=== PATIENT | female | born 1945 | race Caucasian/White ===

== ENCOUNTER 2017-11-28 03:40 | Inpatient (IN) | payer MEDICARE, MEDICAID ==
[2017-11-28] VITALS (9 sets, daily range): BP systolic 125–164; BP diastolic 54–98
[~2017-11-28] VITALS: Ht 162.6 cm; Wt 81.8 kg
[~2017-11-28 03:40] MED LIST: ALBU2.5V7 NEB; ARIP10TA15 PO; ATEN-169 PO; BENZ1TAB7 PO; DULO-31 PO; FURO-149 PO; KETO15CR2 TOP; KETO200S3 TOP; LACTC PO; LEVO112T61 PO; OLAN10TA19 PO; POTA-82 PO; ROSU10TA PO; TOP100T PO; TRAZ-146 PO
[2017-11-28] MEDS ORDERED: vancomycin inj 1,000 MG in normal saline 250ml IV soln 250 ML IV STA ×2 (04:35→05:05)
[2017-11-28 04:43] LABS: BASOPHILS % (AUTO) 0.3 % (0-1); EOSINOPHILS # (AUTO) 0.2 X10'3 (0-0.9); EOSINOPHILS % (AUTO) 1.2 % (0-6); HEMATOCRIT 30.5 % (35.0-45.0); LYMPHOCYTES # (AUTO) 1.6 X10'3 (1.1-4.8); MEAN CORPUSCULAR HEMOGLOBIN 24.3 PG (27.0-31.0); MEAN CORPUSCULAR HGB CONC 32.7 % (33.0-36.5); MEAN CORPUSCULAR VOLUME 74.3 FL (78-98); MEAN PLATELET VOLUME 7.8 FL (7.4-10.4); MONOCYTES # (AUTO) 0.6 X10'3 (0-0.9); MONOCYTES % (AUTO) 4.3 % (2-12); NEUTROPHILS # (AUTO) 10.8 X10'3 (1.8-7.7); NEUTROPHILS % (AUTO) 82.2 % (42-75); PLATELET COUNT 53 X10'3 (140-440); RED BLOOD COUNT 4.11 X10'6 (4.20-5.60); RED CELL DISTRIBUTION WIDTH 19.3 % (11.5-14.5); WHITE BLOOD COUNT 13.2 X10'3 (4.5-11.0)
[2017-11-28 04:57] LABS: ALANINE AMINOTRANSFERASE 28 U/L (12-78); ALBUMIN 3.3 G/DL (3.4-5.0); ALBUMIN/GLOBULIN RATIO 0.8 (1.1-1.5); ALKALINE PHOSPHATASE 113 IU/L (46-116); ANION GAP 11 (8-16); ASPARTATE AMINO TRANSFERASE 19 U/L (10-37); BILIRUBIN,TOTAL 0.3 MG/DL (0.1-1.0); BLOOD UREA NITROGEN 17 MG/DL (7-18); BUN/CREATININE RATIO 19.8 (6.6-38.0); CALCIUM 8.4 MG/DL (8.5-10.1); CHLORIDE 107 MMOL/L (99-107); CREATININE 0.86 MG/DL (0.40-0.90); GLUCOSE 143 MG/DL (70-104); SODIUM 142 MMOL/L (135-145); TOTAL CARBON DIOXIDE 23.9 MMOL/L (24-32); TOTAL PROTEIN 7.3 G/DL (6.4-8.2); eGFR 65 ML/MIN
[2017-11-28] MEDS ORDERED: levoFLOXACIN-Levaquin 750MG/D5 150 ML IV STA (05:05)
[2017-11-28 05:12] LABS: POTASSIUM 3.7 MMOL/L (3.5-5.1)
[2017-11-28] MEDS ORDERED: iohexol 300mg/ml 100ml inj. ONE (05:25)
[2017-11-28] MEDS ORDERED: normal saline 1000ml 1,000 ML IV ONE (05:40)
[2017-11-28] MEDS ORDERED: vancomycin/NS 1 GM ADD-VANTAGE 250 ML IV ONE (05:40)
[2017-11-28] MEDS ORDERED: albuterol 2.5 MG/3 ML nebule NEB ONE (05:55)
[2017-11-28] MEDS ORDERED: glucagon, human recombinant 1mg kit IV ONE (06:00)
[2017-11-28] MEDS ORDERED: LEVO175T2 PO (06:03)
[2017-11-28] MEDS ORDERED: BENZ1TAB7 PO (06:03)
[2017-11-28] MEDS ORDERED: SIME1PAC PO (06:03)
[2017-11-28] MEDS ORDERED: NA P133E4 RC (06:03)
[2017-11-28] MEDS ORDERED: ALBU8.5H8 IH (06:03)
[2017-11-28] MEDS ORDERED: DULO60CA45 PO (06:03)
[2017-11-28] MEDS ORDERED: BENZ1LOZ61 PO (06:03)
[2017-11-28] MEDS ORDERED: OXYC10TA57 PO (06:03)
[2017-11-28] MEDS ORDERED: HYDR-565 PO ×2 (06:03)
[2017-11-28] MEDS ORDERED: ARIP15TA3 PO (06:03)
[2017-11-28] MEDS ORDERED: DOCU100C41 PO (06:03)
[2017-11-28] MEDS ORDERED: MAGN400O6 PO (06:03)
[2017-11-28] MEDS ORDERED: DULR RC (06:03)
[2017-11-28] MEDS ORDERED: LORA0.5T PO (06:03)
[2017-11-28] MEDS ORDERED: TOPI200T PO (06:03)
[2017-11-28] MEDS ORDERED: TRAM50TA2 PO (06:03)
[2017-11-28] MEDS ORDERED: MELO-100 PO (06:03)
[2017-11-28] MEDS ORDERED: ACET-2119 PO (06:03)
[2017-11-28] MEDS ORDERED: acetaminophen 325mg tablet PO PRN (06:15)
[2017-11-28] MEDS ORDERED: magnesium hydroxide 30ml (MOM) UD suspension PO PRN ×2 (06:15→06:20)
[2017-11-28] MEDS ORDERED: ondansetron/PF 4mg/2ml inj IV PRN (06:15)
[2017-11-28] MEDS ORDERED: morphine 4 MG/ML inj SYRINge IV PRN ×2 (06:15)
[2017-11-28] MEDS ORDERED: mag hydrox/Alum hydrox/simeth 30ml oral suspension PO PRN (06:15)
[2017-11-28] MEDS ORDERED: LORazepam 0.5 MG tablet PO PRN (06:20)
[2017-11-28] MEDS ORDERED: SODIUM BICARBONATE PO PRN (06:20)
[2017-11-28] MEDS ORDERED: CITRIC ACID PO PRN (06:20)
[2017-11-28] MEDS ORDERED: SIMETHICONE PO PRN (06:20)
[2017-11-28] MEDS ORDERED: HYDROcodone/acetaminophen 5mg/325mg tablet PO PRN (06:25)
[2017-11-28] MEDS ORDERED: fentaNYL/PF 50MCG/1 ML 2ML syringe ONE (07:01)
[2017-11-28] MEDS ORDERED: MIDAZolam 5mg/5ml vial ONE (07:01)
[2017-11-28] MEDS ORDERED: LIDOcaine Viscous 15ml cup ONE (07:01)
[2017-11-28] MEDS ORDERED: naproxen 500mg tablet PO SCH (07:30)
[2017-11-28] MEDS ORDERED: piperacillin/tazo 3.375gm/50ml 50 ML IV SCH (08:00)
[2017-11-28] MEDS ORDERED: HYDROcodone/acetaminophen 10/325mg tab PO SCH (08:00)
[2017-11-28] MEDS: enoxaparin 40mg/0.4ml syringe SUBCUT SCH (09:27)
[2017-11-28] MEDS: topiramate 100mg tablet PO SCH (09:29)
[2017-11-28] MEDS: levoTHYROXINE 175mcg tablet PO SCH (09:30)
[2017-11-28] MEDS: docusate sod 100mg capsule PO SCH ×2 (09:30→19:58)
[2017-11-28] MEDS: benztropine 1mg tablet PO SCH ×2 (10:00→19:58)
[2017-11-28] MEDS: duloxetine 30mg CAPSULE.DR PO SCH (11:23)
[2017-11-28] MEDS: pantoprazole 40 MG vial IV SCH (12:14)
[2017-11-28] MEDS: piperacillin/tazo 4.5gm/100ml 100 ML IV SCH ×3 (12:14→23:52)
[2017-11-28] MEDS ORDERED: benzocaine/menthol oral lozeng 1 EACH BOX MM PRN (15:20)
[2017-11-28] MEDS: HYDROcodone/acetaminophen 10/325mg tab PO PRN (17:03)
[2017-11-28] MEDS: aripiprazole 5mg tablet PO SCH (21:10)
[2017-11-29 02:00] VITALS: BP 133/58
[2017-11-29] MEDS: HYDROcodone/acetaminophen 10/325mg tab PO PRN ×2 (03:19→20:12)
[2017-11-29 05:34] LABS: BASOPHILS % (AUTO) 0 % (0-1); EOSINOPHILS % (AUTO) 0 % (0-6); HEMATOCRIT 25.2 % (35.0-45.0); HEMOGLOBIN 8.4 g/dl (12.0-16.0); LYMPHOCYTES # (AUTO) 0.9 X10'3 (1.1-4.8); LYMPHOCYTES % (AUTO) 3.8 % (21-51); MEAN CORPUSCULAR HEMOGLOBIN 24.6 PG (27.0-31.0); MEAN CORPUSCULAR HGB CONC 33.5 % (33.0-36.5); MEAN CORPUSCULAR VOLUME 73.3 FL (78-98); MEAN PLATELET VOLUME 7.8 FL (7.4-10.4); MONOCYTES # (AUTO) 1.6 X10'3 (0-0.9); MONOCYTES % (AUTO) 6.4 % (2-12); NEUTROPHILS # (AUTO) 22.5 X10'3 (1.8-7.7); NEUTROPHILS % (AUTO) 89.8 % (42-75); PLATELET COUNT 218 X10'3 (140-440); RED BLOOD COUNT 3.43 X10'6 (4.20-5.60); RED CELL DISTRIBUTION WIDTH 19.3 % (11.5-14.5)
[2017-11-29 06:02] LABS: ALBUMIN 2.8 G/DL (3.4-5.0); ANION GAP 13 (8-16); BLOOD UREA NITROGEN 14 MG/DL (7-18); BUN/CREATININE RATIO 16.9 (6.6-38.0); CALCIUM 8.3 MG/DL (8.5-10.1); CHLORIDE 105 MMOL/L (99-107); CREATININE 0.83 MG/DL (0.40-0.90); GLUCOSE 132 MG/DL (70-104); SODIUM 140 MMOL/L (135-145); TOTAL CARBON DIOXIDE 22.2 MMOL/L (24-32); eGFR 68 ML/MIN
[2017-11-29 06:10] LABS: WHITE BLOOD COUNT 25.1 X10'3 (4.5-11.0)
[2017-11-29 06:11] LABS: TOTAL CELLS COUNTED 100
[2017-11-29 06:12] LABS: ANISOCYTOSIS 2+; PLATELET ESTIMATE NORMAL
[2017-11-29 06:22] VITALS: BP 112/49
[2017-11-29] MEDS ORDERED: potassium Cl 40MEQ/NS 500ml 500 ML IV PRN ×2 (06:40)
[2017-11-29] MEDS ORDERED: potassium Cl 20 mEq SR tablet PO PRN (06:40)
[2017-11-29] MEDS: K and/or MAG REPLACEMENT MC SCH (08:00)
[2017-11-29] MEDS: duloxetine 30mg CAPSULE.DR PO SCH (08:05)
[2017-11-29] MEDS: docusate sod 100mg capsule PO SCH ×2 (08:05→20:02)
[2017-11-29] MEDS: benztropine 1mg tablet PO SCH ×2 (08:06→20:02)
[2017-11-29] MEDS: levoTHYROXINE 175mcg tablet PO SCH (08:06)
[2017-11-29] MEDS: potassium Cl 20 mEq SR tablet PO PRN ×3 (08:06→17:20)
[2017-11-29] MEDS: pantoprazole 40 MG vial IV SCH (08:06)
[2017-11-29] MEDS: topiramate 100mg tablet PO SCH (08:06)
[2017-11-29] MEDS: levoFLOXACIN-Levaquin 750MG/D5 150 ML IV SCH (08:07)
[2017-11-29] MEDS: piperacillin/tazo 4.5gm/100ml 100 ML IV SCH ×2 (08:07→15:08)
[2017-11-29] MEDS: enoxaparin 40mg/0.4ml syringe SUBCUT SCH (08:08)
[2017-11-29] MEDS: albuterol 2.5 MG/3 ML nebule NEB PRN ×2 (09:23→13:56)
[2017-11-29 11:32] VITALS: BP 118/51
[2017-11-29 14:00] LABS: CLARITY,URINE CLEAR (Clear); COLOR,URINE YELLOW (Yellow); GLUCOSE, URINE NEGATIVE (Neg); KETONES,URINE NEGATIVE (Neg); LEUKOCYTE ESTERASE ,URINE TRACE (Neg); NITRITES, URINE NEGATIVE (Neg); OCCULT BLOOD,URINE TRACE-LYSED (Neg); PH,URINE 6.5 (4.8-8.0); PROTEIN,URINE 30 mg/dl (Neg)
[2017-11-29 14:10] LABS: UA COLLECTION TYPE CLN CATCH MIDSTREAM
[2017-11-29 14:11] LABS: BACTERIA,URINE NONE SEEN /HPF (Neg); MUCUS STRANDS NONE SEEN /LPF (Neg); RBC,URINE 0-2 /HPF (0-2); SQUAMOUS EPITHELIAL CELL,UR FEW /LPF (FEW); WBC,URINE 0-4 /HPF (0-4)
[2017-11-29 17:09] VITALS: BP 154/62
[2017-11-29 19:00] VITALS: BP 140/50
[2017-11-29] MEDS: aripiprazole 5mg tablet PO SCH (20:02)
[2017-11-29 23:00] VITALS: BP 114/57
[2017-11-30] MEDS: piperacillin/tazo 4.5gm/100ml 100 ML IV SCH ×3 (00:18→16:06)
[2017-11-30] MEDS: HYDROcodone/acetaminophen 10/325mg tab PO PRN ×4 (01:31→22:14)
[2017-11-30 03:00] VITALS: BP 115/50
[2017-11-30 06:06] LABS: BASOPHILS % (AUTO) 0.1 % (0-1); EOSINOPHILS % (AUTO) 0.3 % (0-6); HEMATOCRIT 25.3 % (35.0-45.0); HEMOGLOBIN 8.2 g/dl (12.0-16.0); LYMPHOCYTES # (AUTO) 1.8 X10'3 (1.1-4.8); LYMPHOCYTES % (AUTO) 11.5 % (21-51); MEAN CORPUSCULAR HEMOGLOBIN 24.1 PG (27.0-31.0); MEAN CORPUSCULAR HGB CONC 32.3 % (33.0-36.5); MEAN CORPUSCULAR VOLUME 74.7 FL (78-98); MEAN PLATELET VOLUME 7.9 FL (7.4-10.4); MONOCYTES # (AUTO) 1.4 X10'3 (0-0.9); MONOCYTES % (AUTO) 8.8 % (2-12); NEUTROPHILS # (AUTO) 12.4 X10'3 (1.8-7.7); NEUTROPHILS % (AUTO) 79.3 % (42-75); PLATELET COUNT 205 X10'3 (140-440); RED BLOOD COUNT 3.39 X10'6 (4.20-5.60); RED CELL DISTRIBUTION WIDTH 19.6 % (11.5-14.5); WHITE BLOOD COUNT 15.7 X10'3 (4.5-11.0)
[2017-11-30 06:11] LABS: ALBUMIN 2.5 G/DL (3.4-5.0); ANION GAP 11 (8-16); BLOOD UREA NITROGEN 11 MG/DL (7-18); BUN/CREATININE RATIO 13.6 (6.6-38.0); CALCIUM 8.5 MG/DL (8.5-10.1); CHLORIDE 108 MMOL/L (99-107); CREATININE 0.81 MG/DL (0.40-0.90); GLUCOSE 100 MG/DL (70-104); POTASSIUM 3.7 MMOL/L (3.5-5.1); SODIUM 141 MMOL/L (135-145); TOTAL CARBON DIOXIDE 22.5 MMOL/L (24-32); eGFR 70 ML/MIN
[2017-11-30 06:45] VITALS: BP 102/47
[2017-11-30] MEDS: levoFLOXACIN-Levaquin 750MG/D5 150 ML IV SCH (07:10)
[2017-11-30] MEDS: benztropine 1mg tablet PO SCH ×2 (07:10→19:28)
[2017-11-30] MEDS: pantoprazole 40 MG vial IV SCH (07:10)
[2017-11-30] MEDS: duloxetine 30mg CAPSULE.DR PO SCH (07:11)
[2017-11-30] MEDS: topiramate 100mg tablet PO SCH (07:11)
[2017-11-30] MEDS: levoTHYROXINE 175mcg tablet PO SCH (07:11)
[2017-11-30] MEDS: enoxaparin 40mg/0.4ml syringe SUBCUT SCH (07:11)
[2017-11-30] MEDS: docusate sod 100mg capsule PO SCH ×2 (07:21→19:28)
[2017-11-30] MEDS: K and/or MAG REPLACEMENT MC SCH (08:00)
[2017-11-30 11:00] VITALS: BP 108/44
[2017-11-30 15:00] VITALS: BP 143/56
[2017-11-30 19:00] VITALS: BP 123/44
[2017-11-30] MEDS: aripiprazole 5mg tablet PO SCH (22:13)
[2017-11-30 23:00] VITALS: BP 115/49
[2017-12-01] MEDS: piperacillin/tazo 4.5gm/100ml 100 ML IV SCH ×3 (00:57→16:22)
[2017-12-01 03:00] VITALS: BP 105/54
[2017-12-01 05:45] LABS: BASOPHILS % (AUTO) 0.5 % (0-1); EOSINOPHILS # (AUTO) 0.3 X10'3 (0-0.9); EOSINOPHILS % (AUTO) 3.6 % (0-6); HEMATOCRIT 25.4 % (35.0-45.0); HEMOGLOBIN 8.2 g/dl (12.0-16.0); LYMPHOCYTES # (AUTO) 1.6 X10'3 (1.1-4.8); LYMPHOCYTES % (AUTO) 17.4 % (21-51); MEAN CORPUSCULAR HEMOGLOBIN 24.4 PG (27.0-31.0); MEAN CORPUSCULAR HGB CONC 32.4 % (33.0-36.5); MEAN CORPUSCULAR VOLUME 75.4 FL (78-98); MEAN PLATELET VOLUME 8.3 FL (7.4-10.4); MONOCYTES # (AUTO) 0.8 X10'3 (0-0.9); MONOCYTES % (AUTO) 8.7 % (2-12); NEUTROPHILS # (AUTO) 6.5 X10'3 (1.8-7.7); NEUTROPHILS % (AUTO) 69.8 % (42-75); PLATELET COUNT 190 X10'3 (140-440); RED BLOOD COUNT 3.37 X10'6 (4.20-5.60); RED CELL DISTRIBUTION WIDTH 19.2 % (11.5-14.5); WHITE BLOOD COUNT 9.4 X10'3 (4.5-11.0)
[2017-12-01 05:58] LABS: ALBUMIN 2.4 G/DL (3.4-5.0); ANION GAP 7 (8-16); BLOOD UREA NITROGEN 10 MG/DL (7-18); BUN/CREATININE RATIO 13.3 (6.6-38.0); CALCIUM 8.5 MG/DL (8.5-10.1); CHLORIDE 107 MMOL/L (99-107); CREATININE 0.75 MG/DL (0.40-0.90); GLUCOSE 115 MG/DL (70-104); MAGNESIUM 1.9 MG/DL (1.5-2.4); PHOSPHORUS 2.6 MG/DL (2.3-4.5); POTASSIUM 4.1 MMOL/L (3.5-5.1); SODIUM 139 MMOL/L (135-145); TOTAL CARBON DIOXIDE 25.5 MMOL/L (24-32); eGFR 76 ML/MIN
[2017-12-01 06:38] VITALS: BP 124/71
[2017-12-01] MEDS: topiramate 100mg tablet PO SCH (07:13)
[2017-12-01] MEDS: levoFLOXACIN-Levaquin 750MG/D5 150 ML IV SCH (07:13)
[2017-12-01] MEDS: enoxaparin 40mg/0.4ml syringe SUBCUT SCH (07:14)
[2017-12-01] MEDS: benztropine 1mg tablet PO SCH ×2 (07:14→20:15)
[2017-12-01] MEDS: HYDROcodone/acetaminophen 10/325mg tab PO PRN ×3 (07:14→20:16)
[2017-12-01] MEDS: levoTHYROXINE 175mcg tablet PO SCH (07:14)
[2017-12-01] MEDS: pantoprazole 40 MG vial IV SCH (07:14)
[2017-12-01] MEDS: duloxetine 30mg CAPSULE.DR PO SCH (07:14)
[2017-12-01] MEDS: docusate sod 100mg capsule PO SCH ×2 (07:25→20:00)
[2017-12-01] MEDS: K and/or MAG REPLACEMENT MC SCH (07:25)
[2017-12-01] MEDS: albuterol 2.5 MG/3 ML nebule NEB PRN (08:10)
[2017-12-01 11:00] VITALS: BP 125/65
[2017-12-01 14:57] LABS: FERRITIN 77 NG/ML (8-252)
[2017-12-01 15:00] VITALS: BP 119/58
[2017-12-01 15:04] LABS: % IRON SATURATION 13 % (11-46); IRON 33 UG/DL (49-151); TOTAL IRON BINDING CAPACITY 248 UG/DL (259-388)
[2017-12-01 19:00] VITALS: BP 137/67
[2017-12-01] MEDS: lactobacillus rhamnosus 10,000 MMU CELLS/CAPSULE PO SCH (20:16)
[2017-12-01] MEDS: aripiprazole 5mg tablet PO SCH (20:16)
[2017-12-02] MEDS: piperacillin/tazo 4.5gm/100ml 100 ML IV SCH ×2 (00:41→07:05)
[2017-12-02] MEDS: HYDROcodone/acetaminophen 10/325mg tab PO PRN ×2 (02:02→07:05)
[2017-12-02 03:00] VITALS: BP 125/49
[2017-12-02 05:43] LABS: BASOPHILS # (AUTO) 0.1 X10'3 (0-0.2); BASOPHILS % (AUTO) 0.6 % (0-1); EOSINOPHILS # (AUTO) 0.4 X10'3 (0-0.9); EOSINOPHILS % (AUTO) 4.5 % (0-6); HEMOGLOBIN 8.8 g/dl (12.0-16.0); LYMPHOCYTES # (AUTO) 1.7 X10'3 (1.1-4.8); LYMPHOCYTES % (AUTO) 18.2 % (21-51); MEAN CORPUSCULAR HEMOGLOBIN 24.4 PG (27.0-31.0); MEAN CORPUSCULAR HGB CONC 32.4 % (33.0-36.5); MEAN CORPUSCULAR VOLUME 75.3 FL (78-98); MEAN PLATELET VOLUME 8.2 FL (7.4-10.4); MONOCYTES # (AUTO) 0.8 X10'3 (0-0.9); MONOCYTES % (AUTO) 8.2 % (2-12); NEUTROPHILS # (AUTO) 6.4 X10'3 (1.8-7.7); NEUTROPHILS % (AUTO) 68.5 % (42-75); PLATELET COUNT 220 X10'3 (140-440); RED BLOOD COUNT 3.58 X10'6 (4.20-5.60); RED CELL DISTRIBUTION WIDTH 19.5 % (11.5-14.5); WHITE BLOOD COUNT 9.3 X10'3 (4.5-11.0)
[2017-12-02 06:04] LABS: ALBUMIN 2.6 G/DL (3.4-5.0); ANION GAP 11 (8-16); BLOOD UREA NITROGEN 9 MG/DL (7-18); BUN/CREATININE RATIO 9.3 (6.6-38.0); CHLORIDE 105 MMOL/L (99-107); CREATININE 0.97 MG/DL (0.40-0.90); GLUCOSE 97 MG/DL (70-104); MAGNESIUM 1.6 MG/DL (1.5-2.4); POTASSIUM 3.7 MMOL/L (3.5-5.1); SODIUM 140 MMOL/L (135-145); TOTAL CARBON DIOXIDE 24.4 MMOL/L (24-32); eGFR 57 ML/MIN
[2017-12-02 06:34] VITALS: BP 120/61
[2017-12-02] MEDS: topiramate 100mg tablet PO SCH (07:05)
[2017-12-02] MEDS: levoTHYROXINE 175mcg tablet PO SCH (07:05)
[2017-12-02] MEDS: levoFLOXACIN-Levaquin 750MG/D5 150 ML IV SCH (07:05)
[2017-12-02] MEDS: pantoprazole 40 MG vial IV SCH (07:05)
[2017-12-02] MEDS: docusate sod 100mg capsule PO SCH (07:05)
[2017-12-02] MEDS: lactobacillus rhamnosus 10,000 MMU CELLS/CAPSULE PO SCH (07:05)
[2017-12-02] MEDS: benztropine 1mg tablet PO SCH (07:06)
[2017-12-02] MEDS: duloxetine 30mg CAPSULE.DR PO SCH (07:06)
[2017-12-02] MEDS: enoxaparin 40mg/0.4ml syringe SUBCUT SCH (07:06)
[2017-12-02] MEDS: K and/or MAG REPLACEMENT MC SCH (08:00)
[2017-12-02 11:00] VITALS: BP 123/72
== END 2017-12-02 13:45 | DRG 871 ==
LOC: ER 03:41 → ED HOLD 06:11 → PCU 3S 09:36
PROVIDERS: ADMIT Hospitalist; ATTEND Family Medicine
PROC: 0DC58ZZ Extirpation of Matter from Esophagus, Via Natural or Artificial Opening Endoscopic (ICD-10-PCS; principal; 2017-11-28)
PROC: BW241ZZ Computerized Tomography (CT Scan) of Chest and Abdomen using Low Osmolar Contrast (ICD-10-PCS; 2017-11-28)
DX: A41.9 Sepsis, unspecified organism (principal); J69.0 Pneumonitis due to inhalation of food and vomit; G93.40 Encephalopathy, unspecified; K21.9 Gastro-esophageal reflux disease without esophagitis; J44.9 Chronic obstructive pulmonary disease, unspecified; E87.6 Hypokalemia; E66.9 Obesity, unspecified; D50.9 Iron deficiency anemia, unspecified; D69.6 Thrombocytopenia, unspecified; E03.9 Hypothyroidism, unspecified; E78.00 Pure hypercholesterolemia, unspecified; I10 Essential (primary) hypertension; I73.9 Peripheral vascular disease, unspecified; T18.128A Food in esophagus causing other injury, initial encounter; Z51.5 Encounter for palliative care; Z66 Do not resuscitate; F32.9 Major depressive disorder, single episode, unspecified; F41.9 Anxiety disorder, unspecified; M19.90 Unspecified osteoarthritis, unspecified site; Z88.8 Allergy status to other drugs, medicaments and biological substances; Z88.2 Allergy status to sulfonamides; Z88.1 Allergy status to other antibiotic agents; Z88.0 Allergy status to penicillin; Z91.030 Bee allergy status; Z87.442 Personal history of urinary calculi; Z68.31 Body mass index [BMI] 31.0-31.9, adult
CPT/HCPCS: 36415; 71045; 71260; 80048; 80053; 81001; 82607; 82728; 82746; 83540; 83550; 83605; 83735; 84100; 84443; 85025; 87040; 87070; 87088; 93005; 94640; 94760; 96365; 99285; A4620; A6212; A6213; A6258; C9113; G0500; J1650; J1956; J2250; J2270; J2405; J2543; J3010; J3370; J7030; Q9967

== ENCOUNTER 2018-09-26 20:09 | Emergency (ER) | payer MEDICARE, MEDICAID ==
[~2018-09-26] VITALS: Ht 165.1 cm; Wt 77.3 kg
[~2018-09-26 20:09] MED LIST changes: +ACET-2119 PO; -ALBU2.5V7 NEB; +ALBU8.5H8 IH; -ARIP10TA15 PO; +ARIP15TA3 PO; -ATEN-169 PO; +BENZ1LOZ61 PO; +DOCU100C41 PO; -DULO-31 PO; +DULO60CA45 PO; +DULR RC; -FURO-149 PO; +HYDR-4353 PO; -KETO15CR2 TOP; -KETO200S3 TOP; -LACTC PO; -LEVO112T61 PO; +LEVO175T2 PO; +LORA0.5T PO; +MAGN400O6 PO; +MELO-100 PO; +NA P133E4 RC; -OLAN10TA19 PO; +OXYC10TA57 PO; -POTA-82 PO; -ROSU10TA PO; +SIME1PAC PO; -TOP100T PO; +TOPI200T PO; +TRAM50TA2 PO; -TRAZ-146 PO
[2018-09-26 21:41] VITALS: BP 142/68
== END 2018-09-27 00:32 | disposition home or self-care (01) ==
LOC: ER 20:10
DX: T18.128A Food in esophagus causing other injury, initial encounter (principal); E78.00 Pure hypercholesterolemia, unspecified; I10 Essential (primary) hypertension; J44.9 Chronic obstructive pulmonary disease, unspecified; K21.9 Gastro-esophageal reflux disease without esophagitis; Z87.442 Personal history of urinary calculi; M19.90 Unspecified osteoarthritis, unspecified site; Z98.890 Other specified postprocedural states; Z88.2 Allergy status to sulfonamides; Z88.5 Allergy status to narcotic agent; Z88.8 Allergy status to other drugs, medicaments and biological substances; Z79.899 Other long term (current) drug therapy; X58.XXXA Exposure to other specified factors, initial encounter; Y93.89 Activity, other specified; Y92.89 Other specified places as the place of occurrence of the external cause; Y99.8 Other external cause status
CPT/HCPCS: 71045; 99284

== ENCOUNTER 2018-12-22 17:31 | Inpatient (IN) | payer MEDICARE, MEDICAID ==
[~2018-12-22] VITALS: Ht 160 cm; Wt 80.1 kg
[2018-12-22 19:08] LABS: ALANINE AMINOTRANSFERASE 229 U/L (12-78); ALBUMIN 3.2 G/DL (3.4-5.0); ALBUMIN/GLOBULIN RATIO 0.7 (1.1-1.5); ALKALINE PHOSPHATASE 242 IU/L (46-116); ANION GAP 11 (8-16); ASPARTATE AMINO TRANSFERASE 196 U/L (10-37); BILIRUBIN,TOTAL 1.1 MG/DL (0.1-1.0); BLOOD UREA NITROGEN 14 MG/DL (7-18); BUN/CREATININE RATIO 16.1 (6.6-38.0); CALCIUM 8.9 MG/DL (8.5-10.1); CHLORIDE 105 MMOL/L (99-107); CREATININE 0.87 MG/DL (0.40-0.90); GLUCOSE 108 MG/DL (70-104); POTASSIUM 4.1 MMOL/L (3.5-5.1); SODIUM 139 MMOL/L (135-145); TOTAL CARBON DIOXIDE 23.1 MMOL/L (24-32); TOTAL PROTEIN 7.7 G/DL (6.4-8.2); eGFR 64 ML/MIN
[2018-12-22 19:10] LABS: COLOR,URINE YELLOW (Yellow); GLUCOSE, URINE NEGATIVE (Neg); KETONES,URINE NEGATIVE (Neg); LEUKOCYTE ESTERASE ,URINE TRACE (Neg); NITRITES, URINE POSITIVE (Neg); OCCULT BLOOD,URINE NEGATIVE (Neg); PH,URINE 7.5 (4.8-8.0); PROTEIN,URINE NEGATIVE (Neg)
[2018-12-22 19:14] LABS: CLARITY,URINE SLIGHTLY CLOUDY (Clear); UA COLLECTION TYPE STRAIGHT CATH
[2018-12-22 19:18] LABS: BACTERIA,URINE 4+ /HPF (Neg); RBC,URINE NONE SEEN /HPF (0-2); SQUAMOUS EPITHELIAL CELL,UR MODERATE /LPF (FEW); WBC,URINE 0-4 /HPF (0-4)
[2018-12-22 19:27] LABS: LIPASE 5277 U/L (73-393)
[2018-12-22] MEDS ORDERED: ondansetron/PF 4mg/2ml inj IV ONE ×2 (19:30)
[2018-12-22] MEDS ORDERED: morphine 4 MG/ML inj SYRINge IV ONE ×2 (19:30)
[2018-12-22 19:40] LABS: BASOPHILS # (AUTO) 0.1 X10'3 (0-0.2); BASOPHILS % (AUTO) 0.4 % (0-1); EOSINOPHILS # (AUTO) 0.6 X10'3 (0-0.9); EOSINOPHILS % (AUTO) 5.1 % (0-6); HEMATOCRIT 31.2 % (35.0-45.0); HEMOGLOBIN 9.6 g/dl (12.0-16.0); LYMPHOCYTES # (AUTO) 1.2 X10'3 (1.1-4.8); LYMPHOCYTES % (AUTO) 10.8 % (21-51); MEAN CORPUSCULAR HEMOGLOBIN 24.4 PG (27.0-31.0); MEAN CORPUSCULAR HGB CONC 30.7 g/dL (33.0-36.5); MEAN CORPUSCULAR VOLUME 79.3 FL (78-98); MEAN PLATELET VOLUME 7.6 FL (7.4-10.4); MONOCYTES # (AUTO) 0.8 X10'3 (0-0.9); NEUTROPHILS # (AUTO) 8.9 X10'3 (1.8-7.7); NEUTROPHILS % (AUTO) 76.7 % (42-75); PLATELET COUNT 204 X10'3 (140-440); RED BLOOD COUNT 3.94 X10'6 (4.20-5.60); RED CELL DISTRIBUTION WIDTH 17.2 % (11.5-14.5); WHITE BLOOD COUNT 11.6 X10'3 (4.5-11.0)
[2018-12-22] MEDS ORDERED: CefTRIAXone/D5W-Rocephin 1gm 50 ML IV ONE (21:10)
[2018-12-22] MEDS ORDERED: normal saline 1000ML IV soln IVB ONE (21:20)
[2018-12-22] MEDS ORDERED: TRAZ-251 PO (22:11)
[2018-12-22] MEDS ORDERED: MORP15TA PO (22:11)
[2018-12-22] MEDS ORDERED: MELA3TAB64 PO ×2 (22:11)
[2018-12-22] MEDS ORDERED: MIRA50TA PO (22:11)
[2018-12-22] MEDS ORDERED: PANT-47 PO (22:11)
[2018-12-22] MEDS ORDERED: GUAI-652 PO (22:11)
[2018-12-22] MEDS ORDERED: CITRIC ACID PO PRN (22:50)
[2018-12-22] MEDS ORDERED: non-formulary drug (Na Phos,M-B/Na Phos,Di-Ba* (Fleet's Enema*) 1 BOTTLE) RC PRN (22:50)
[2018-12-22] MEDS ORDERED: magnesium 2GM in 50ml NS 50 ML IV PRN (22:50)
[2018-12-22] MEDS ORDERED: potassium Cl 20 mEq SR tablet PO PRN (22:50)
[2018-12-22] MEDS ORDERED: SIMETHICONE PO PRN (22:50)
[2018-12-22] MEDS ORDERED: potassium CL 10mEq/100ml bag 100 ML IV PRN (22:50)
[2018-12-22] MEDS ORDERED: docusate sod 100mg capsule PO PRN (22:50)
[2018-12-22] MEDS ORDERED: magnesium 4gm in 100ml NS 100 ML IV PRN (22:50)
[2018-12-22] MEDS ORDERED: SODIUM BICARBONATE PO PRN (22:50)
[2018-12-22] MEDS ORDERED: magnesium hydroxide 30ml (MOM) UD suspension PO PRN (22:50)
[2018-12-22] MEDS ORDERED: mag hydrox/Alum hydrox/simeth 30ml oral suspension PO PRN (22:50)
[2018-12-22] MEDS: normal saline 1000ml 1,000 ML IV SCH (23:24)
--- NOTE | 2018-12-22 23:50 | NUR ---
Received report for Anthony KYLE in ED, will assess patient when she arrives to floor.
--- NOTE | 2018-12-22 23:51 | NUR ---
Patient sleeping comfortably in bed. Patient placed on 2L NC while she is sleeping of room air saturation of 88%.
[2018-12-23] VITALS (18 sets, daily range): BP systolic 110–147; BP diastolic 52–104
[2018-12-23] MEDS ORDERED: piperacillin/tazo 3.375gm/50ml 50 ML IV SCH
[2018-12-23] MEDS ORDERED: acetaminophen 325mg/10.15ml oral unit dose solution PO PRN (00:30)
--- NOTE | 2018-12-23 00:30 | NUR ---
Patient's temperature is 103.1 axillary and 102.[address] Kruger who agreed that to Tylenol 500 mg oral solution for temp but MAX of 1,500 mg Daily. Will continue to monitor.
[2018-12-23] MEDS ORDERED: ipratropium/albuterol 3ml nebule NEB PRN (04:40)
[2018-12-23 04:46] LABS: BASOPHILS % (AUTO) 0.1 % (0-1); EOSINOPHILS % (AUTO) 0.1 % (0-6); HEMATOCRIT 28.7 % (35.0-45.0); HEMOGLOBIN 9.2 g/dl (12.0-16.0); LYMPHOCYTES # (AUTO) 0.4 X10'3 (1.1-4.8); MEAN CORPUSCULAR HEMOGLOBIN 24.9 PG (27.0-31.0); MEAN CORPUSCULAR HGB CONC 32.2 g/dL (33.0-36.5); MEAN CORPUSCULAR VOLUME 77.3 FL (78-98); MEAN PLATELET VOLUME 7.5 FL (7.4-10.4); MONOCYTES # (AUTO) 1.5 X10'3 (0-0.9); MONOCYTES % (AUTO) 7.9 % (2-12); NEUTROPHILS % (AUTO) 89.9 % (42-75); PLATELET COUNT 202 X10'3 (140-440); RED BLOOD COUNT 3.72 X10'6 (4.20-5.60); RED CELL DISTRIBUTION WIDTH 16.8 % (11.5-14.5); WHITE BLOOD COUNT 18.9 X10'3 (4.5-11.0)
[2018-12-23 04:55] LABS: ALANINE AMINOTRANSFERASE 233 U/L (12-78); ALBUMIN 2.5 G/DL (3.4-5.0); ALBUMIN/GLOBULIN RATIO 0.6 (1.1-1.5); ALKALINE PHOSPHATASE 295 IU/L (46-116); ANION GAP 8 (8-16); ASPARTATE AMINO TRANSFERASE 178 U/L (10-37); BILIRUBIN,TOTAL 2.4 MG/DL (0.1-1.0); BLOOD UREA NITROGEN 13 MG/DL (7-18); BUN/CREATININE RATIO 13.3 (6.6-38.0); CALCIUM 8.1 MG/DL (8.5-10.1); CHLORIDE 109 MMOL/L (99-107); CHOL/HDL RATIO 3.3 (0.00-4.99); CHOLESTEROL 124 MG/DL (0-200); CREATININE 0.98 MG/DL (0.40-0.90); GLUCOSE 128 MG/DL (70-104); HDL CHOLESTEROL 38 MG/DL (35-60); LDL CHOLESTEROL 81 MG/DL (50-100); LIPASE 1307 U/L (73-393); MAGNESIUM 1.6 MG/DL (1.5-2.4); POTASSIUM 3.1 MMOL/L (3.5-5.1); SODIUM 141 MMOL/L (135-145); TOTAL CARBON DIOXIDE 23.9 MMOL/L (24-32); TOTAL PROTEIN 6.4 G/DL (6.4-8.2); TRIGLYCERIDES 65 MG/DL (20-135); eGFR 56 ML/MIN
--- NOTE | 2018-12-23 06:45 | NUR ---
Problems reprioritized. Patient report given, questions answered & plan of care reviewed with Kelle KYLE.
[2018-12-23] MEDS: levoTHYROXINE 175mcg tablet PO SCH (08:00)
[2018-12-23] MEDS: enoxaparin 40mg/0.4ml syringe SQ SCH (08:00)
[2018-12-23] MEDS ORDERED: cefepime 1GM/NS ADD-VANTAGE 100 ML IV SCH (08:00)
[2018-12-23] MEDS: MIRABEGRON 50 MG PO SCH (08:00)
[2018-12-23] MEDS: metroNIDAZOLE-Flagyl 500mg/NS 100 ML IV SCH ×2 (08:54→17:18)
[2018-12-23] MEDS: pantoprazole 40mg Tablet.DR PO SCH (08:55)
[2018-12-23] MEDS: benztropine 1mg tablet PO SCH ×2 (08:55→20:00)
[2018-12-23] MEDS: topiramate 100mg tablet PO SCH (08:55)
[2018-12-23] MEDS: K and/or MAG REPLACEMENT MC SCH (08:56)
[2018-12-23] MEDS: normal saline 1000ml 1,000 ML IV SCH ×2 (08:57→18:50)
--- NOTE | 2018-12-23 09:33 | NUR ---
MD Kapoor aware of TSH level. OKed thyroid medication administration.
[2018-12-23] MEDS: HYDROmorphone inj. 0.5 MG/0.5 ML DISP.SYRIN IV PRN ×2 (09:36→14:54)
[2018-12-23] MEDS ORDERED: MIDAZolam 5mg/5ml vial ONE (10:49)
[2018-12-23] MEDS ORDERED: fentaNYL/PF 50MCG/1 ML 2ML syringe ONE (10:49)
[2018-12-23] MEDS ORDERED: levoFLOXACIN-Levaquin 500mg/D5 100 ML IV ONE (10:50)
[2018-12-23] MEDS ORDERED: iohexol 300 MG/1 ML 50ml polymer ONE (10:50)
[2018-12-23] MEDS ORDERED: LIDOcaine Viscous 15ml cup ONE (10:50)
[2018-12-23] MEDS ORDERED: diphenhydrAMINE 50 mg/ml inj ONE (10:50)
[2018-12-23] MEDS ORDERED: glucagon, human recombinant 1mg kit ONE ×2 (10:50)
[2018-12-23] MEDS: potassium Cl 20 mEq SR tablet PO PRN ×2 (10:58→17:17)
[2018-12-23] MEDS: levoFLOXACIN-Levaquin 500mg/D5 100 ML IV SCH (13:55)
--- NOTE | 2018-12-23 15:16 | NUR ---
WOC notified to check on "Excoriation in groin and buttock". Checked in on pt and noted significant MASD and yeast in bilateral groins, particularly on most lateral points. also noted MASD under bilateral breasts. Put "Interdry sheets" in these areas. Noted MASD on buttock from repeated incontinence, acute on chronic. Applied Calazime cream to this area.
--- NOTE | 2018-12-23 17:11 | NUR ---
PAGER ID: [phone] MESSAGE: HENRIETTA DIAZ [phone] MAY I HAVE A DIET FOR THIS PT. PLEASE? SHE IS STILL NPO VIET [phone]
[2018-12-23] MEDS: NYSTATIN CREAM - 30GM TUBE TP SCH ×2 (17:18→20:52)
--- NOTE | 2018-12-23 18:16 | NUR ---
Patient in room [facility]. I have received report from SAROJ Nina and had the opportunity to ask questions and assume patient care.
--- NOTE | 2018-12-23 19:15 | NUR ---
Report given to Pete KYLE.
[2018-12-23] MEDS: ondansetron/PF 4mg/2ml inj IV PRN (19:19)
[2018-12-23] MEDS: Melatonin 3mg tablet PO SCH (21:00)
[2018-12-23] MEDS: potassium CL 10mEq/100ml bag 100 ML IV PRN ×2 (22:02→23:11)
[2018-12-24] VITALS (21 sets, daily range): BP systolic 142–170; BP diastolic 45–86
[2018-12-24] MEDS: metroNIDAZOLE-Flagyl 500mg/NS 100 ML IV SCH ×3 (00:23→16:00)
[2018-12-24] MEDS: HYDROmorphone 1 mg/ml syringe IV PRN ×6 (01:20→23:12)
[2018-12-24] MEDS: normal saline 1000ml 1,000 ML IV SCH ×3 (04:50→19:10)
[2018-12-24 05:34] LABS: ALANINE AMINOTRANSFERASE 156 U/L (12-78); ALBUMIN 2.3 G/DL (3.4-5.0); ALBUMIN/GLOBULIN RATIO 0.6 (1.1-1.5); ALKALINE PHOSPHATASE 236 IU/L (46-116); ANION GAP 9 (8-16); ASPARTATE AMINO TRANSFERASE 61 U/L (10-37); BILIRUBIN,TOTAL 1.3 MG/DL (0.1-1.0); BLOOD UREA NITROGEN 14 MG/DL (7-18); BUN/CREATININE RATIO 19.7 (6.6-38.0); CHLORIDE 113 MMOL/L (99-107); CREATININE 0.71 MG/DL (0.40-0.90); GLUCOSE 83 MG/DL (70-104); LIPASE 416 U/L (73-393); MAGNESIUM 1.8 MG/DL (1.5-2.4); POTASSIUM 3.7 MMOL/L (3.5-5.1); SODIUM 142 MMOL/L (135-145); TOTAL CARBON DIOXIDE 20.4 MMOL/L (24-32); TOTAL PROTEIN 6.2 G/DL (6.4-8.2); eGFR 81 ML/MIN
[2018-12-24 05:36] LABS: BASOPHILS % (AUTO) 0.2 % (0-1); EOSINOPHILS % (AUTO) 0.3 % (0-6); HEMATOCRIT 26.5 % (35.0-45.0); HEMOGLOBIN 8.4 g/dl (12.0-16.0); LYMPHOCYTES # (AUTO) 0.8 X10'3 (1.1-4.8); LYMPHOCYTES % (AUTO) 7.2 % (21-51); MEAN CORPUSCULAR HEMOGLOBIN 24.6 PG (27.0-31.0); MEAN CORPUSCULAR HGB CONC 31.7 g/dL (33.0-36.5); MEAN CORPUSCULAR VOLUME 77.7 FL (78-98); MEAN PLATELET VOLUME 7.9 FL (7.4-10.4); MONOCYTES # (AUTO) 0.8 X10'3 (0-0.9); MONOCYTES % (AUTO) 6.6 % (2-12); NEUTROPHILS # (AUTO) 9.8 X10'3 (1.8-7.7); NEUTROPHILS % (AUTO) 85.7 % (42-75); PLATELET COUNT 188 X10'3 (140-440); RED BLOOD COUNT 3.41 X10'6 (4.20-5.60); WHITE BLOOD COUNT 11.5 X10'3 (4.5-11.0)
[2018-12-24 05:52] LABS: CALCIUM 8.3 MG/DL (8.5-10.1)
--- NOTE | 2018-12-24 06:25 | NUR ---
Patient in room [facility]. I have received report from SAROJ HERRERA and had the opportunity to ask questions and assume patient care.
--- NOTE | 2018-12-24 06:31 | NUR ---
Problems reprioritized. Patient report given, questions answered & plan of care reviewed with SAROJ Love.
[2018-12-24] MEDS: topiramate 100mg tablet PO SCH (07:29)
[2018-12-24] MEDS: pantoprazole 40mg Tablet.DR PO SCH (07:29)
[2018-12-24] MEDS: benztropine 1mg tablet PO SCH ×2 (07:29→20:00)
[2018-12-24] MEDS: MIRABEGRON 50 MG PO SCH (07:37)
[2018-12-24] MEDS: K and/or MAG REPLACEMENT MC SCH (07:39)
[2018-12-24] MEDS: levoTHYROXINE 175mcg tablet PO SCH (07:39)
[2018-12-24] MEDS: NYSTATIN CREAM - 30GM TUBE TP SCH ×2 (07:39→20:00)
[2018-12-24] MEDS: enoxaparin 40mg/0.4ml syringe SQ SCH (07:40)
[2018-12-24] MEDS: levoFLOXACIN-Levaquin 500mg/D5 100 ML IV SCH (08:51)
--- NOTE | 2018-12-24 13:46 | NUR ---
PATIENT POSITIVE MRSA NASAL SWAB. DR OJEDA NOTIFIED.
--- NOTE | 2018-12-24 14:05 | NUR ---
Wound consult: Eros Kimble. Per physical assessment skin intact and buttock reddened. No nutrition intervention warranted at this time. Pt confused and A/O x 2. Pt currently NPO pending cholecystectomy. Will continue to follow. Addendum: 12/24/18 at [address] Amended: Links added.
[2018-12-24] MEDS ORDERED: BUPIVAcaine/PF 2.5 mg/ml (0.25%) 30ml vial ONE (14:58)
--- NOTE | 2018-12-24 15:54 | NUR ---
PATIENT DOWN TO OR. Addendum: 12/24/18 at 1628 by Ivan Sears RN PATIENT'S YURIY ENGLISH WAS SENT DOWN WITH HER TO OR.
[2018-12-24] MEDS ORDERED: dexamethasone sod phosphate 10mg/ml inj ONE (16:21)
[2018-12-24] MEDS ORDERED: ondansetron/PF 4mg/2ml inj ONE (16:21)
[2018-12-24] MEDS ORDERED: sevoflurane 250ml liquid IH ONE (16:21)
[2018-12-24] MEDS ORDERED: metroNIDAZOLE 500mg/NS 100ml premix IV ONE (16:21)
[2018-12-24] MEDS ORDERED: fentaNYL/PF 50MCG/1 ML 2ML syringe ONE (16:22)
[2018-12-24] MEDS ORDERED: midazolam 2 mg/2 ml injection ONE (16:23)
[2018-12-24] MEDS ORDERED: propofol inj 20 ML IV ONE (16:26)
[2018-12-24] MEDS ORDERED: ringers solution, lacted 1,000 ML IV SCH (16:53)
[2018-12-24] MEDS ORDERED: morphine 4 MG/ML inj SYRINge IV PRN ×2 (16:55)
[2018-12-24] MEDS ORDERED: ondansetron/PF 4mg/2ml inj IV PRN (16:55)
[2018-12-24] MEDS ORDERED: meperidine/PF 25mg/ml syringe IV PRN ×3 (16:55)
[2018-12-24] MEDS ORDERED: proCHLORperazine 10 MG/2 ml inj IV PRN (16:55)
[2018-12-24] MEDS ORDERED: neostigmine methylsulfate 1 MG/ML 10ml vial ONE (17:02)
[2018-12-24] MEDS ORDERED: glycopyrrolate 0.2mg/ml inj ONE (17:02)
[2018-12-24] MEDS ORDERED: rocuronium 10mg/ml inj IV ONE (17:02)
--- NOTE | 2018-12-24 17:35 | NUR ---
Admitted to ICU rm 2045 for recovery, accompanied by ROLL SCALE MAN and anesthesiologist. Initial assessment done and recorded on arrival, VIN drain noted to be full on arrival. Dr. Luna notified for admission orders and updated on VIN. Orders received
--- NOTE | 2018-12-24 17:49 | NUR ---
INFORMED BY ASSEMBLER BODY, KRISTINE, THAT PATIENT TO BE TRANSFERRED TO ICU AFTER RECOVERY ROOM. CALLED TO ICU TO GIVE REPORT HOWEVER INFORMED THAT RECEIVING RN DECLINED TO RECEIVE REPORT FROM ME SHE HAD ALREADY GOTTEN REPORT FROM THE ANESTHESIOLOGIST.
--- NOTE | 2018-12-24 18:30 | NUR ---
Patient in room ICU 2045. I have received report from Kaitlynn KYLE and had the opportunity to ask questions and assume patient care.
--- NOTE | 2018-12-24 18:30 | NUR ---
Discharge criteria met for PACU report to on coming APPEALS REFEREE. Dr. Calhoun at bedside update given
[2018-12-24 18:57] LABS: HEMATOCRIT 28.4 % (35.0-45.0); HEMOGLOBIN 8.8 g/dl (12.0-16.0); MEAN CORPUSCULAR HEMOGLOBIN 24.5 PG (27.0-31.0); MEAN CORPUSCULAR HGB CONC 30.9 g/dL (33.0-36.5); MEAN CORPUSCULAR VOLUME 79.5 FL (78-98); MEAN PLATELET VOLUME 7.7 FL (7.4-10.4); PLATELET COUNT 213 X10'3 (140-440); RED BLOOD COUNT 3.57 X10'6 (4.20-5.60); RED CELL DISTRIBUTION WIDTH 17.4 % (11.5-14.5); WHITE BLOOD COUNT 16.7 X10'3 (4.5-11.0)
[2018-12-24 19:02] LABS: ALBUMIN 2.3 G/DL (3.4-5.0); ANION GAP 12 (8-16); BLOOD UREA NITROGEN 14 MG/DL (7-18); BUN/CREATININE RATIO 23.3 (6.6-38.0); CALCIUM 8.1 MG/DL (8.5-10.1); CHLORIDE 111 MMOL/L (99-107); GLUCOSE 133 MG/DL (70-104); MAGNESIUM 1.6 MG/DL (1.5-2.4); PHOSPHORUS 2.1 MG/DL (2.3-4.5); SODIUM 140 MMOL/L (135-145); TOTAL CARBON DIOXIDE 17.4 MMOL/L (24-32); eGFR > 90 ML/MIN
[2018-12-24 19:07] LABS: PARTIAL THROMBOPLASTIN TIME 34 SECONDS (22-32)
[2018-12-24] MEDS: dextrose 5%-1/2 normal saline 1,000 ML IV SCH (19:35)
[2018-12-24] MEDS ORDERED: HYDROmorphone inj. 0.5 MG/0.5 ML DISP.SYRIN IV PRN (19:40)
[2018-12-24] MEDS: Melatonin 3mg tablet PO SCH (21:00)
--- NOTE | 2018-12-24 21:59 | NUR ---
Pt having frequent PVCs and a few brief runs of SVT. Ana Harman notified, orders received. VIN output stabilized, Vital signs stable. Pt painful, IV pain medication given. Will continue to monitor,
[2018-12-24] MEDS ORDERED: magnesium 2GM in 50ml NS 50 ML IV ONE (22:00)
[2018-12-25] VITALS (16 sets, daily range): BP systolic 143–169; BP diastolic 57–83
--- NOTE | 2018-12-25 00:01 | NUR ---
Pt confused at times, pulls at lines and VIN. Febrile, bathed in cool washcloths, temp lowered in room, fan in use. Durga notified, orders received. Sitter at bedside.
[2018-12-25] MEDS: acetaminophen 650mg rectal suppository RC PRN ×2 (01:01→20:16)
[2018-12-25] MEDS: metroNIDAZOLE-Flagyl 500mg/NS 100 ML IV SCH ×3 (01:01→16:58)
[2018-12-25 03:02] LABS: BASOPHILS % (AUTO) 0 % (0-1); EOSINOPHILS % (AUTO) 0 % (0-6); HEMATOCRIT 28.7 % (35.0-45.0); LYMPHOCYTES # (AUTO) 0.3 X10'3 (1.1-4.8); LYMPHOCYTES % (AUTO) 1.4 % (21-51); MEAN CORPUSCULAR HEMOGLOBIN 24.4 PG (27.0-31.0); MEAN CORPUSCULAR HGB CONC 31.3 g/dL (33.0-36.5); MONOCYTES # (AUTO) 0.9 X10'3 (0-0.9); MONOCYTES % (AUTO) 4.1 % (2-12); NEUTROPHILS # (AUTO) 20.3 X10'3 (1.8-7.7); NEUTROPHILS % (AUTO) 94.5 % (42-75); PLATELET COUNT 236 X10'3 (140-440); RED BLOOD COUNT 3.67 X10'6 (4.20-5.60); RED CELL DISTRIBUTION WIDTH 17.2 % (11.5-14.5); WHITE BLOOD COUNT 21.5 X10'3 (4.5-11.0)
[2018-12-25 03:06] LABS: ALANINE AMINOTRANSFERASE 139 U/L (12-78); ALBUMIN 2.3 G/DL (3.4-5.0); ALBUMIN/GLOBULIN RATIO 0.5 (1.1-1.5); ALKALINE PHOSPHATASE 207 IU/L (46-116); ANION GAP 16 (8-16); ASPARTATE AMINO TRANSFERASE 49 U/L (10-37); BILIRUBIN,TOTAL 1.1 MG/DL (0.1-1.0); BLOOD UREA NITROGEN 12 MG/DL (7-18); BUN/CREATININE RATIO 17.1 (6.6-38.0); CALCIUM 8.4 MG/DL (8.5-10.1); CHLORIDE 107 MMOL/L (99-107); GLUCOSE 175 MG/DL (70-104); LIPASE 101 U/L (73-393); MAGNESIUM 2.1 MG/DL (1.5-2.4); PHOSPHORUS 2.3 MG/DL (2.3-4.5); POTASSIUM 3.6 MMOL/L (3.5-5.1); SODIUM 140 MMOL/L (135-145); TOTAL CARBON DIOXIDE 17.3 MMOL/L (24-32); TOTAL PROTEIN 6.5 G/DL (6.4-8.2); eGFR 82 ML/MIN
[2018-12-25] MEDS: HYDROmorphone 1 mg/ml syringe IV PRN ×6 (03:49→19:55)
[2018-12-25 03:56] LABS: HEMOGLOBIN A1C 5.3 % (4.5-6.2)
--- NOTE | 2018-12-25 06:07 | NUR ---
Ana Harman updated on pt's status including AM labs and PBNP result. No new orders at this time. Pt's temp trending down after tylenol. Pt less agitated, answering questions appropriately. Sitter at bedside.
--- NOTE | 2018-12-25 06:15 | NUR ---
Patient in room ICU 2045. I have received report from SAROJ JO and had the opportunity to ask questions and assume patient care.
--- NOTE | 2018-12-25 06:34 | NUR ---
Problems reprioritized. Patient report given, questions answered & plan of care reviewed with Travon KYLE.
[2018-12-25] MEDS: levoFLOXACIN-Levaquin 500mg/D5 100 ML IV SCH (06:58)
[2018-12-25] MEDS: K and/or MAG REPLACEMENT MC SCH (07:09)
[2018-12-25] MEDS: MIRABEGRON 50 MG PO SCH ×2 (07:51→08:00)
[2018-12-25] MEDS: pantoprazole 40mg Tablet.DR PO SCH (08:21)
[2018-12-25] MEDS: benztropine 1mg tablet PO SCH ×2 (08:21→20:00)
[2018-12-25] MEDS: levoTHYROXINE 175mcg tablet PO SCH (08:21)
[2018-12-25] MEDS: enoxaparin 40mg/0.4ml syringe SQ SCH (08:21)
[2018-12-25] MEDS: topiramate 100mg tablet PO SCH (08:21)
[2018-12-25] MEDS: NYSTATIN CREAM - 30GM TUBE TP SCH ×2 (08:22→22:48)
[2018-12-25] MEDS: dextrose 5%-1/2 normal saline 1,000 ML IV SCH ×2 (08:55→22:15)
--- NOTE | 2018-12-25 09:00 | NUR ---
Dr. Caballero at bedside, updated regarding patients pain despite medication. MD aware with no new orders. ok for patient to transfer to floor. stable labs and VS.
--- NOTE | 2018-12-25 09:11 | NUR ---
SITTER AT BEDSIDE, TRIAL REMOVAL OF RESTRAINTS Addendum: 12/25/18 at 0911 by Travon Bal RN Amended: Links added.
[2018-12-25 10:32] LABS: HEMATOCRIT 27.4 % (35.0-45.0); HEMOGLOBIN 8.6 g/dl (12.0-16.0); MEAN CORPUSCULAR HEMOGLOBIN 24.4 PG (27.0-31.0); MEAN CORPUSCULAR HGB CONC 31.5 g/dL (33.0-36.5); MEAN CORPUSCULAR VOLUME 77.5 FL (78-98); MEAN PLATELET VOLUME 8.4 FL (7.4-10.4); PLATELET COUNT 218 X10'3 (140-440); RED BLOOD COUNT 3.53 X10'6 (4.20-5.60); RED CELL DISTRIBUTION WIDTH 17.3 % (11.5-14.5); WHITE BLOOD COUNT 17.9 X10'3 (4.5-11.0)
--- NOTE | 2018-12-25 12:15 | NUR ---
Report called to receiving nurse. Transferred via bed with all Belongings. sitter with patient. Special Issues communicated to receiving nurse.
[2018-12-25 13:04] LABS: HEMATOCRIT 30.1 % (35.0-45.0); HEMOGLOBIN 9.4 g/dl (12.0-16.0); MEAN CORPUSCULAR HEMOGLOBIN 24.5 PG (27.0-31.0); MEAN CORPUSCULAR HGB CONC 31.1 g/dL (33.0-36.5); MEAN CORPUSCULAR VOLUME 78.8 FL (78-98); MEAN PLATELET VOLUME 7.8 FL (7.4-10.4); PLATELET COUNT 226 X10'3 (140-440); RED BLOOD COUNT 3.82 X10'6 (4.20-5.60); WHITE BLOOD COUNT 18.5 X10'3 (4.5-11.0)
--- NOTE | 2018-12-25 15:00 | NUR ---
PT CAME FROM [facility].
--- NOTE | 2018-12-25 15:40 | NUR ---
ACCORDING TO ICU NURSE, LULI: PER DR TOMAS PT IS BEING KEPT NPO FOR NOW. THE SURGERY WAS QUITE INVASIVE AND HE PREFERS FOR HER TO REST HER GUT. ALSO HE STATES DO NOT DC SITTER NO MATTER WHAT. PT IS TO GO BACK TO ICU IF NO SITTER. CHARGE NOTIFIED.
--- NOTE | 2018-12-25 18:35 | NUR ---
GAVE REPORT TO PRUDENCE RN
--- NOTE | 2018-12-25 18:43 | NUR ---
Patient in room [facility]. I have received report from Yahaira KYLE and had the opportunity to ask questions and assume patient care.
[2018-12-25 19:16] LABS: HEMATOCRIT 27.6 % (35.0-45.0); HEMOGLOBIN 8.8 g/dl (12.0-16.0); MEAN CORPUSCULAR HEMOGLOBIN 24.5 PG (27.0-31.0); MEAN CORPUSCULAR HGB CONC 31.7 g/dL (33.0-36.5); MEAN CORPUSCULAR VOLUME 77.3 FL (78-98); MEAN PLATELET VOLUME 7.8 FL (7.4-10.4); PLATELET COUNT 227 X10'3 (140-440); RED BLOOD COUNT 3.57 X10'6 (4.20-5.60); RED CELL DISTRIBUTION WIDTH 16.8 % (11.5-14.5); WHITE BLOOD COUNT 19.2 X10'3 (4.5-11.0)
[2018-12-25] MEDS: lactobacillus rhamnosus 10,000 MMU CELLS/CAPSULE PO SCH (20:00)
[2018-12-25] MEDS: ondansetron/PF 4mg/2ml inj IV PRN (20:16)
[2018-12-25] MEDS: Melatonin 3mg tablet PO SCH (21:33)
[2018-12-26] VITALS: BP 140/69
[2018-12-26] MEDS: metroNIDAZOLE-Flagyl 500mg/NS 100 ML IV SCH ×3 (00:42→16:45)
[2018-12-26] MEDS: HYDROmorphone 1 mg/ml syringe IV PRN ×5 (01:39→21:00)
[2018-12-26 05:52] LABS: ALANINE AMINOTRANSFERASE 74 U/L (12-78); ALBUMIN/GLOBULIN RATIO 0.5 (1.1-1.5); ALKALINE PHOSPHATASE 162 IU/L (46-116); ANION GAP 9 (8-16); ASPARTATE AMINO TRANSFERASE 23 U/L (10-37); BILIRUBIN,TOTAL 0.8 MG/DL (0.1-1.0); BLOOD UREA NITROGEN 9 MG/DL (7-18); BUN/CREATININE RATIO 12.9 (6.6-38.0); CHLORIDE 108 MMOL/L (99-107); GLUCOSE 131 MG/DL (70-104); MAGNESIUM 1.8 MG/DL (1.5-2.4); PHOSPHORUS 1.8 MG/DL (2.3-4.5); POTASSIUM 3.3 MMOL/L (3.5-5.1); SODIUM 138 MMOL/L (135-145); TOTAL CARBON DIOXIDE 20.8 MMOL/L (24-32); TOTAL PROTEIN 5.9 G/DL (6.4-8.2); eGFR 82 ML/MIN
[2018-12-26 05:53] LABS: BASOPHILS % (AUTO) 0.2 % (0-1); EOSINOPHILS % (AUTO) 0.1 % (0-6); HEMATOCRIT 27.5 % (35.0-45.0); HEMOGLOBIN 8.7 g/dl (12.0-16.0); LYMPHOCYTES # (AUTO) 1.4 X10'3 (1.1-4.8); LYMPHOCYTES % (AUTO) 7.2 % (21-51); MEAN CORPUSCULAR HEMOGLOBIN 24.6 PG (27.0-31.0); MEAN CORPUSCULAR HGB CONC 31.6 g/dL (33.0-36.5); MEAN CORPUSCULAR VOLUME 78.1 FL (78-98); MEAN PLATELET VOLUME 8.1 FL (7.4-10.4); MONOCYTES % (AUTO) 10.6 % (2-12); NEUTROPHILS # (AUTO) 15.4 X10'3 (1.8-7.7); NEUTROPHILS % (AUTO) 81.9 % (42-75); PLATELET COUNT 224 X10'3 (140-440); RED BLOOD COUNT 3.52 X10'6 (4.20-5.60); RED CELL DISTRIBUTION WIDTH 17.2 % (11.5-14.5); WHITE BLOOD COUNT 18.8 X10'3 (4.5-11.0)
--- NOTE | 2018-12-26 06:28 | NUR ---
Problems reprioritized. Patient report given, questions answered & plan of care reviewed with Elda KYLE.
[2018-12-26] MEDS: dextrose 5%-1/2 normal saline 1,000 ML IV SCH (06:48)
[2018-12-26 07:00] VITALS: BP 153/71
[2018-12-26] MEDS: K and/or MAG REPLACEMENT MC SCH (08:00)
[2018-12-26] MEDS: MIRABEGRON 50 MG PO SCH (08:00)
[2018-12-26] MEDS: NYSTATIN CREAM - 30GM TUBE TP SCH ×2 (08:00→19:31)
[2018-12-26] MEDS: lactobacillus rhamnosus 10,000 MMU CELLS/CAPSULE PO SCH ×2 (08:00→19:31)
[2018-12-26] MEDS: levoFLOXACIN-Levaquin 500mg/D5 100 ML IV SCH (09:19)
[2018-12-26] MEDS: benztropine 1mg tablet PO SCH ×2 (09:21→19:31)
[2018-12-26] MEDS: topiramate 100mg tablet PO SCH (09:21)
[2018-12-26] MEDS: levoTHYROXINE 175mcg tablet PO SCH (09:21)
[2018-12-26] MEDS: enoxaparin 40mg/0.4ml syringe SQ SCH (09:21)
[2018-12-26] MEDS: pantoprazole 40mg Tablet.DR PO SCH (09:21)
[2018-12-26 11:00] VITALS: BP 157/86
[2018-12-26] MEDS ORDERED: potassium CL 10mEq/100ml bag 100 ML IV PRN (13:30)
[2018-12-26] MEDS ORDERED: magnesium Cl slow-release 64mg tablet PO PRN (13:30)
[2018-12-26] MEDS ORDERED: magnesium 4gm in 100ml NS 100 ML IV PRN (13:30)
[2018-12-26] MEDS: potassium Cl 20 mEq SR tablet PO PRN ×2 (13:55→19:31)
--- NOTE | 2018-12-26 18:23 | NUR ---
Received report from SAROJ Schroeder. Patient is awake and alert on room air, in no apparent distress. Call light and items of frequent use within reach. Sitter at bedside. Will continue to monitor.
[2018-12-26] MEDS: Melatonin 3mg tablet PO SCH (19:31)
[2018-12-26 20:00] VITALS: BP 138/63
[2018-12-26 23:00] VITALS: BP 146/72
--- NOTE | 2018-12-26 23:04 | NUR ---
Problems reprioritized. Patient report given, questions answered & plan of care reviewed with SAROJ Pickett.
--- NOTE | 2018-12-26 23:34 | NUR ---
Patient in room [facility]. I have received report from Toyin KYLE and had the opportunity to ask questions and assume patient care. Pt currently sleeping. Sitter at bedside. No signs of distress, will continue to monitor.
[2018-12-27] MEDS: metroNIDAZOLE-Flagyl 500mg/NS 100 ML IV SCH ×3 (00:20→17:15)
[2018-12-27] MEDS: HYDROmorphone 1 mg/ml syringe IV PRN ×6 (00:26→20:00)
[2018-12-27] MEDS: dextrose 5%-1/2 normal saline 1,000 ML IV SCH ×2 (00:55→14:27)
--- NOTE | 2018-12-27 06:31 | NUR ---
Problems reprioritized. Patient report given, questions answered & plan of care reviewed with Elda KYLE.
[2018-12-27 06:33] LABS: BASOPHILS % (AUTO) 0.2 % (0-1); EOSINOPHILS % (AUTO) 0.1 % (0-6); HEMATOCRIT 26.8 % (35.0-45.0); HEMOGLOBIN 8.6 g/dl (12.0-16.0); LYMPHOCYTES # (AUTO) 1.7 X10'3 (1.1-4.8); LYMPHOCYTES % (AUTO) 7.6 % (21-51); MEAN CORPUSCULAR HEMOGLOBIN 24.8 PG (27.0-31.0); MEAN CORPUSCULAR HGB CONC 32.2 g/dL (33.0-36.5); MEAN CORPUSCULAR VOLUME 76.9 FL (78-98); MEAN PLATELET VOLUME 8.1 FL (7.4-10.4); MONOCYTES % (AUTO) 8.9 % (2-12); NEUTROPHILS # (AUTO) 18.9 X10'3 (1.8-7.7); NEUTROPHILS % (AUTO) 83.2 % (42-75); PLATELET COUNT 244 X10'3 (140-440); RED BLOOD COUNT 3.49 X10'6 (4.20-5.60); WHITE BLOOD COUNT 22.7 X10'3 (4.5-11.0)
[2018-12-27 06:43] LABS: ALANINE AMINOTRANSFERASE 44 U/L (12-78); ALBUMIN 1.7 G/DL (3.4-5.0); ALBUMIN/GLOBULIN RATIO 0.4 (1.1-1.5); ALKALINE PHOSPHATASE 130 IU/L (46-116); ANION GAP 12 (8-16); ASPARTATE AMINO TRANSFERASE 7 U/L (10-37); BILIRUBIN,TOTAL 0.5 MG/DL (0.1-1.0); BLOOD UREA NITROGEN 6 MG/DL (7-18); BUN/CREATININE RATIO 9.2 (6.6-38.0); CALCIUM 7.5 MG/DL (8.5-10.1); CHLORIDE 107 MMOL/L (99-107); CREATININE 0.65 MG/DL (0.40-0.90); GLUCOSE 193 MG/DL (70-104); MAGNESIUM 1.6 MG/DL (1.5-2.4); PHOSPHORUS 1.8 MG/DL (2.3-4.5); SODIUM 138 MMOL/L (135-145); TOTAL CARBON DIOXIDE 19.1 MMOL/L (24-32); TOTAL PROTEIN 5.6 G/DL (6.4-8.2); eGFR 90 ML/MIN
[2018-12-27] MEDS: MIRABEGRON 50 MG PO SCH (08:00)
[2018-12-27] MEDS: levoFLOXACIN-Levaquin 500mg/D5 100 ML IV SCH (08:25)
[2018-12-27] MEDS: enoxaparin 40mg/0.4ml syringe SQ SCH (08:27)
[2018-12-27] MEDS: benztropine 1mg tablet PO SCH ×2 (08:28→20:46)
[2018-12-27] MEDS: lactobacillus rhamnosus 10,000 MMU CELLS/CAPSULE PO SCH ×2 (08:28→20:47)
[2018-12-27] MEDS: levoTHYROXINE 175mcg tablet PO SCH (08:28)
[2018-12-27] MEDS: potassium Cl 20 mEq SR tablet PO PRN ×2 (08:28→17:43)
[2018-12-27] MEDS: topiramate 100mg tablet PO SCH (08:28)
[2018-12-27] MEDS: pantoprazole 40mg Tablet.DR PO SCH (08:28)
[2018-12-27] MEDS: NYSTATIN CREAM - 30GM TUBE TP SCH ×2 (08:29→20:47)
[2018-12-27] MEDS: K and/or MAG REPLACEMENT MC SCH (08:29)
[2018-12-27] MEDS ORDERED: vancomycin/NS 1 GM ADD-VANTAGE 250 ML IV ONE (13:20)
[2018-12-27] MEDS: VANCOmycin 1250MG/NS 250ml Bag 250 ML IV SCH (14:27)
--- NOTE | 2018-12-27 15:04 | NUR ---
Initial: Pt s/p cholecystectomy w/ resistant UTI per MD note. AOx2 per EMR. Advanced to pureed/NTL per DRUM FILLER today PO 0% first meal; magic cup BIDLD added to meals for additional protein needs. Lipase down to WNL from 5277 on admit and receiving electrolyte replacement per protocol. Will continue to monitor. Rec: 1. continue pureed/NTL diet per DRUM FILLER 2. magic cup BIDLD 3. wt per rx Addendum: 12/27/18 at [address] Amended: Links added.
[2018-12-27] MEDS: aztreonam inj. 1,000 MG in normal saline 100ml IV soln 100 ML IV SCH ×2 (15:55→23:54)
[2018-12-27 18:50] VITALS: BP 141/68
[2018-12-27 19:00] VITALS: BP 141/68
[2018-12-27] MEDS: Melatonin 3mg tablet PO SCH (20:46)
[2018-12-28] MEDS: metroNIDAZOLE-Flagyl 500mg/NS 100 ML IV SCH ×4 (01:06→23:44)
[2018-12-28] MEDS: VANCOmycin 1250MG/NS 250ml Bag 250 ML IV SCH ×2 (02:30→13:59)
[2018-12-28 04:56] LABS: MAGNESIUM 1.7 MG/DL (1.5-2.4); PHOSPHORUS 2.2 MG/DL (2.3-4.5)
[2018-12-28 07:00] VITALS: BP 141/69
--- NOTE | 2018-12-28 07:09 | NUR ---
Problems reprioritized. Patient report given, questions answered & plan of care reviewed with Petar. Addendum: 12/28/18 at 0710 by Lio Johns RN Amended: Links added.
[2018-12-28] MEDS: aztreonam inj. 1,000 MG in normal saline 100ml IV soln 100 ML IV SCH ×2 (07:52→16:41)
[2018-12-28] MEDS: NYSTATIN CREAM - 30GM TUBE TP SCH ×2 (08:00→20:16)
[2018-12-28] MEDS: MIRABEGRON 50 MG PO SCH (08:00)
[2018-12-28] MEDS: K and/or MAG REPLACEMENT MC SCH (08:00)
[2018-12-28] MEDS: enoxaparin 40mg/0.4ml syringe SQ SCH (08:00)
[2018-12-28 08:54] LABS: POTASSIUM 3.7 MMOL/L (3.5-5.1)
[2018-12-28] MEDS: benztropine 1mg tablet PO SCH ×2 (09:32→20:15)
[2018-12-28] MEDS: HYDROmorphone inj. 0.5 MG/0.5 ML DISP.SYRIN IV PRN ×2 (09:32→14:02)
[2018-12-28] MEDS: topiramate 100mg tablet PO SCH (09:32)
[2018-12-28] MEDS: levoTHYROXINE 175mcg tablet PO SCH (09:33)
[2018-12-28] MEDS: lactobacillus rhamnosus 10,000 MMU CELLS/CAPSULE PO SCH ×2 (09:33→20:15)
[2018-12-28] MEDS: pantoprazole 40mg Tablet.DR PO SCH (09:33)
[2018-12-28 09:49] LABS: BASOPHILS % (AUTO) 0.1 % (0-1); EOSINOPHILS # (AUTO) 0.2 X10'3 (0-0.9); EOSINOPHILS % (AUTO) 0.6 % (0-6); HEMATOCRIT 29.3 % (35.0-45.0); HEMOGLOBIN 9.3 g/dl (12.0-16.0); LYMPHOCYTES # (AUTO) 1.8 X10'3 (1.1-4.8); LYMPHOCYTES % (AUTO) 6.9 % (21-51); MEAN CORPUSCULAR HEMOGLOBIN 24.3 PG (27.0-31.0); MEAN CORPUSCULAR HGB CONC 31.7 g/dL (33.0-36.5); MEAN CORPUSCULAR VOLUME 76.8 FL (78-98); MEAN PLATELET VOLUME 7.8 FL (7.4-10.4); MONOCYTES # (AUTO) 2.4 X10'3 (0-0.9); NEUTROPHILS # (AUTO) 22.1 X10'3 (1.8-7.7); NEUTROPHILS % (AUTO) 83.4 % (42-75); PLATELET COUNT 345 X10'3 (140-440); RED BLOOD COUNT 3.81 X10'6 (4.20-5.60); RED CELL DISTRIBUTION WIDTH 17.2 % (11.5-14.5)
[2018-12-28 09:58] LABS: WHITE BLOOD COUNT 26.5 X10'3 (4.5-11.0)
[2018-12-28 11:00] VITALS: BP 139/70
[2018-12-28] MEDS: dextrose 5%-1/2 normal saline 1,000 ML IV SCH ×2 (11:00→16:35)
[2018-12-28 11:29] LABS: CLARITY,URINE SLIGHTLY CLOUDY (Clear); COLOR,URINE YELLOW (Yellow); GLUCOSE, URINE NEGATIVE (Neg); KETONES,URINE NEGATIVE (Neg); LEUKOCYTE ESTERASE ,URINE TRACE (Neg); NITRITES, URINE NEGATIVE (Neg); OCCULT BLOOD,URINE NEGATIVE (Neg); PROTEIN,URINE NEGATIVE (Neg)
[2018-12-28 11:40] LABS: UA COLLECTION TYPE FOLEY CATH
[2018-12-28 11:56] LABS: CAL OXALATE CRYSTALS FEW /HPF (NEGATIVE); HYALINE CASTS 0-3 /LPF (NEGATIVE); MUCUS STRANDS MANY /LPF (Neg); SQUAMOUS EPITHELIAL CELL,UR MANY /LPF (FEW); TRANSITIONAL EPI CELLS,URINE FEW /HPF
[2018-12-28 11:58] LABS: BACTERIA,URINE NONE SEEN /HPF (Neg); RBC,URINE 0-2 /HPF (0-2); WBC,URINE 0-4 /HPF (0-4)
--- NOTE | 2018-12-28 12:32 | NUR ---
Wound care POC. Arrived at bedside to assess skin. Explained procedure to pt and pt gave informed verbal consent. Pt is alert and reports no pain at this time. Redness to bilateral breasts, groin, and sacrum have all improved with no note of any open areas. Pt states the areas all feel better. Recommend continuing current skin care regimen to maintain integrity. Pt tolerated procedure well. Bed left in lowest position, call light and personal items within reach.
[2018-12-28] MEDS ORDERED: nystatin 15 GM powder TP SCH (13:00)
[2018-12-28 13:26] LABS: ANISOCYTOSIS 1+; MICROCYTOSIS 1+; PLATELET ESTIMATE NORMAL; TOTAL CELLS COUNTED 100
[2018-12-28 13:28] LABS: POLYCHROMASIA FEW
[2018-12-28] MEDS ORDERED: Potassium Cl inj 20 MEQ in normal saline 1000ml 990 ML IV SCH (16:20)
[2018-12-28 18:00] VITALS: BP 153/65
--- NOTE | 2018-12-28 18:27 | NUR ---
Problems reprioritized. Patient report given, questions answered & plan of care reviewed with SAROJ Beck.
--- NOTE | 2018-12-28 18:43 | NUR ---
Patient in room [facility]. I have received report from SAROJ Anderson and had the opportunity to ask questions and assume patient care.
[2018-12-28] MEDS: Melatonin 3mg tablet PO SCH (20:15)
[2018-12-28] MEDS: diatr meglu/diatrizoate 30ml oral sol.-(3 dose) bottle PO SCH (20:17)
[2018-12-28] MEDS ORDERED: miconazole nitrate 2% 45gm VAG cream VG SCH (21:00)
[2018-12-29 00:54] VITALS: BP 152/70
[2018-12-29] MEDS: aztreonam inj. 1,000 MG in normal saline 100ml IV soln 100 ML IV SCH ×3 (01:00→16:00)
[2018-12-29] MEDS ORDERED: VANCOMYCIN LEVEL IV ONE (01:30)
[2018-12-29] MEDS: dextrose 5%-1/2 normal saline 1,000 ML IV SCH (01:41)
[2018-12-29] MEDS: HYDROmorphone inj. 0.5 MG/0.5 ML DISP.SYRIN IV PRN ×5 (01:42→21:36)
[2018-12-29 01:54] LABS: MAGNESIUM 1.6 MG/DL (1.5-2.4); PHOSPHORUS 2.7 MG/DL (2.3-4.5)
[2018-12-29] MEDS: VANCOmycin 1250MG/NS 250ml Bag 250 ML IV SCH (02:48)
--- NOTE | 2018-12-29 06:13 | NUR ---
Problems reprioritized. Patient report given, questions answered & plan of care reviewed with SAROJ Syed.
[2018-12-29] MEDS: lactobacillus rhamnosus 10,000 MMU CELLS/CAPSULE PO SCH ×2 (07:36→21:34)
[2018-12-29] MEDS: metroNIDAZOLE-Flagyl 500mg/NS 100 ML IV SCH ×2 (07:36→16:37)
[2018-12-29] MEDS: benztropine 1mg tablet PO SCH ×2 (07:36→21:35)
[2018-12-29] MEDS: enoxaparin 40mg/0.4ml syringe SQ SCH (07:36)
[2018-12-29] MEDS: topiramate 100mg tablet PO SCH (07:36)
[2018-12-29] MEDS: NYSTATIN CREAM - 30GM TUBE TP SCH ×2 (07:37→20:00)
[2018-12-29] MEDS: levoTHYROXINE 175mcg tablet PO SCH (07:37)
[2018-12-29] MEDS: diatr meglu/diatrizoate 30ml oral sol.-(3 dose) bottle PO SCH ×2 (07:37→11:25)
[2018-12-29 08:00] VITALS: BP 155/70
[2018-12-29] MEDS: K and/or MAG REPLACEMENT MC SCH (08:00)
[2018-12-29] MEDS: pantoprazole 40mg Tablet.DR PO SCH (08:00)
[2018-12-29] MEDS: MIRABEGRON 50 MG PO SCH (08:00)
[2018-12-29 08:01] LABS: BASOPHILS # (AUTO) 0.1 X10'3 (0-0.2); BASOPHILS % (AUTO) 0.4 % (0-1); EOSINOPHILS # (AUTO) 0.4 X10'3 (0-0.9); EOSINOPHILS % (AUTO) 2.3 % (0-6); HEMATOCRIT 27.9 % (35.0-45.0); HEMOGLOBIN 8.7 g/dl (12.0-16.0); LYMPHOCYTES # (AUTO) 1.9 X10'3 (1.1-4.8); LYMPHOCYTES % (AUTO) 10.1 % (21-51); MEAN CORPUSCULAR HEMOGLOBIN 24.2 PG (27.0-31.0); MEAN CORPUSCULAR HGB CONC 31.3 g/dL (33.0-36.5); MEAN CORPUSCULAR VOLUME 77.3 FL (78-98); MEAN PLATELET VOLUME 7.5 FL (7.4-10.4); MONOCYTES # (AUTO) 1.9 X10'3 (0-0.9); MONOCYTES % (AUTO) 10.3 % (2-12); NEUTROPHILS # (AUTO) 14.6 X10'3 (1.8-7.7); NEUTROPHILS % (AUTO) 76.9 % (42-75); PLATELET COUNT 348 X10'3 (140-440); RED BLOOD COUNT 3.61 X10'6 (4.20-5.60); RED CELL DISTRIBUTION WIDTH 17.3 % (11.5-14.5)
[2018-12-29] MEDS ORDERED: iohexol 300mg/ml 100ml inj. ONE (10:19)
[2018-12-29 11:00] VITALS: BP 151/69
--- NOTE | 2018-12-29 14:06 | NUR ---
CT HS RESULTED. PER SURGEON ORDER DRAIN THROUGH IR
--- NOTE | 2018-12-29 16:46 | NUR ---
Patient in room [facility]. I have received report from KAREEM KYLE and had the opportunity to ask questions and assume patient care.
[2018-12-29 18:00] VITALS: BP 138/67
--- NOTE | 2018-12-29 18:23 | NUR ---
Patient in room [facility]. I have received report from SAROJ Syed and had the opportunity to ask questions and assume patient care.
[2018-12-29] MEDS: Melatonin 3mg tablet PO SCH (21:34)
[2018-12-30] VITALS: BP 139/69
[2018-12-30] MEDS: metroNIDAZOLE-Flagyl 500mg/NS 100 ML IV SCH ×3 (00:20→16:09)
[2018-12-30] MEDS: dextrose 5%-1/2 normal saline 1,000 ML IV SCH ×3 (00:21→20:05)
[2018-12-30] MEDS: HYDROmorphone inj. 0.5 MG/0.5 ML DISP.SYRIN IV PRN ×5 (00:28→23:01)
[2018-12-30] MEDS: aztreonam inj. 1,000 MG in normal saline 100ml IV soln 100 ML IV SCH ×3 (01:40→17:27)
[2018-12-30 05:16] LABS: ALBUMIN 1.7 G/DL (3.4-5.0); ANION GAP 10 (8-16); BLOOD UREA NITROGEN 8 MG/DL (7-18); BUN/CREATININE RATIO 13.6 (6.6-38.0); CALCIUM 7.8 MG/DL (8.5-10.1); CHLORIDE 110 MMOL/L (99-107); CREATININE 0.59 MG/DL (0.40-0.90); GLUCOSE 101 MG/DL (70-104); PHOSPHORUS 3.6 MG/DL (2.3-4.5); POTASSIUM 3.1 MMOL/L (3.5-5.1); SODIUM 141 MMOL/L (135-145); TOTAL CARBON DIOXIDE 20.7 MMOL/L (24-32); eGFR > 90 ML/MIN
--- NOTE | 2018-12-30 06:34 | NUR ---
Patient in room [facility]. I have received report from SAROJ Beck and had the opportunity to ask questions and assume patient care.
--- NOTE | 2018-12-30 06:35 | NUR ---
Problems reprioritized. Patient report given, questions answered & plan of care reviewed with SAROJ Navarrete.
[2018-12-30 07:00] VITALS: BP 155/76
[2018-12-30] MEDS: MIRABEGRON 50 MG PO SCH (07:14)
[2018-12-30] MEDS: pantoprazole 40mg Tablet.DR PO SCH (07:29)
[2018-12-30] MEDS: lactobacillus rhamnosus 10,000 MMU CELLS/CAPSULE PO SCH ×2 (07:29→20:05)
[2018-12-30] MEDS: benztropine 1mg tablet PO SCH ×2 (07:29→20:06)
[2018-12-30] MEDS: levoTHYROXINE 175mcg tablet PO SCH (07:29)
[2018-12-30] MEDS: enoxaparin 40mg/0.4ml syringe SQ SCH (07:30)
[2018-12-30] MEDS: topiramate 100mg tablet PO SCH (07:30)
[2018-12-30] MEDS: NYSTATIN CREAM - 30GM TUBE TP SCH ×2 (07:31→20:12)
[2018-12-30] MEDS: K and/or MAG REPLACEMENT MC SCH (08:00)
[2018-12-30 11:00] VITALS: BP 140/75
--- NOTE | 2018-12-30 11:01 | NUR ---
Reassessment: Pt previously on pureed diet with NTL with 25% PO intake however diet was just advanced to regular yesterday with documented 100% PO intake of protein at dinner. ST notes on 12/28 indicate pt not safe with thin liquids and regular solid foods; will consult ST again to f/u with appropriate texture modification for pt to prevent possibility of aspiration. Pt A/O x 1 per physical assessment. Pt continues receiving magic cup BIDLD. Will monitor need for additional appropriate ONS following repeat BSS with [facility] 12/29. Will continue to follow. Rec: 1. Change to low fat diet with texture per ST recs pending f/u BSS, consult placed 2. magic cup BIDLD 3. monitor need for additional ONS pending f/u BSS for appropriate texture modification 4. wt per rx Addendum: 12/30/18 at [address] Amended: Links added.
[2018-12-30] MEDS ORDERED: magnesium 4gm in 100ml NS 100 ML IV PRN (12:05)
[2018-12-30] MEDS ORDERED: magnesium Cl slow-release 64mg tablet PO PRN (12:05)
[2018-12-30] MEDS ORDERED: potassium Cl 20 mEq SR tablet PO PRN ×2 (12:05)
[2018-12-30] MEDS: potassium CL 10mEq/100ml bag 100 ML IV PRN ×4 (12:47→21:30)
--- NOTE | 2018-12-30 18:35 | NUR ---
Problems reprioritized. Patient report given, questions answered & plan of care reviewed with SAROJ Bernal.
[2018-12-30 19:00] VITALS: BP 145/77
[2018-12-30] MEDS: Melatonin 3mg tablet PO SCH (21:30)
[2018-12-31] VITALS (10 sets, daily range): BP systolic 111–181; BP diastolic 61–84
[2018-12-31] MEDS: metroNIDAZOLE-Flagyl 500mg/NS 100 ML IV SCH ×3 (00:40→16:06)
[2018-12-31] MEDS: aztreonam inj. 1,000 MG in normal saline 100ml IV soln 100 ML IV SCH ×3 (00:56→17:01)
[2018-12-31] MEDS ORDERED: VANCOMYCIN LEVEL IV ONE (01:30)
[2018-12-31 01:57] LABS: PHOSPHORUS 3.5 MG/DL (2.3-4.5); VANCOMYCIN,TROUGH 19.2 UG/ML (6.0-14.0)
[2018-12-31 04:06] LABS: MAGNESIUM 1.6 MG/DL (1.5-2.4); POTASSIUM 3.6 MMOL/L (3.5-5.1)
--- NOTE | 2018-12-31 06:29 | NUR ---
Patient in room [facility]. I have received report from SAROJ Bernal and had the opportunity to ask questions and assume patient care.
--- NOTE | 2018-12-31 06:31 | NUR ---
Problems reprioritized. Patient report given, questions answered & plan of care reviewed with Rosalba KYLE.
--- NOTE | 2018-12-31 06:33 | NUR ---
Problems reprioritized. Patient report given, questions answered & plan of care reviewed with Julieta KYLE.Patient has been complaining of abdominal discomfort and nausea. Md ordered Zofran Po to help relieve gas. Patient is resting and still compains of pain. He declined pain meds and was given Morhine one time which made him feel nauseated.
[2018-12-31] MEDS: K and/or MAG REPLACEMENT MC SCH (07:17)
[2018-12-31] MEDS: enoxaparin 40mg/0.4ml syringe SQ SCH (07:17)
[2018-12-31] MEDS: topiramate 100mg tablet PO SCH (07:27)
[2018-12-31] MEDS: lactobacillus rhamnosus 10,000 MMU CELLS/CAPSULE PO SCH ×2 (07:27→21:01)
[2018-12-31] MEDS: levoTHYROXINE 175mcg tablet PO SCH (07:27)
[2018-12-31] MEDS: pantoprazole 40mg Tablet.DR PO SCH (07:27)
[2018-12-31] MEDS: benztropine 1mg tablet PO SCH ×2 (07:27→21:01)
[2018-12-31] MEDS: NYSTATIN CREAM - 30GM TUBE TP SCH ×2 (07:28→21:05)
[2018-12-31] MEDS ORDERED: fentaNYL/PF 50MCG/1 ML 2ML syringe ONE (09:27)
[2018-12-31] MEDS ORDERED: fentaNYL/PF 50MCG/1 ML 2ML syringe IV PRN (09:55)
[2018-12-31] MEDS: HYDROmorphone inj. 0.5 MG/0.5 ML DISP.SYRIN IV PRN ×4 (10:37→19:55)
[2018-12-31] MEDS: dextrose 5%-1/2 normal saline 1,000 ML IV SCH (13:17)
--- NOTE | 2018-12-31 18:19 | NUR ---
Problems reprioritized. Patient report given, questions answered & plan of care reviewed with SAROJ Bernal.
[2018-12-31] MEDS: Melatonin 3mg tablet PO SCH (21:01)
[2019-01-01] MEDS: aztreonam inj. 1,000 MG in normal saline 100ml IV soln 100 ML IV SCH ×4 (00:21→23:49)
[2019-01-01] MEDS: metroNIDAZOLE-Flagyl 500mg/NS 100 ML IV SCH ×3 (00:21→17:14)
[2019-01-01] MEDS: HYDROmorphone inj. 0.5 MG/0.5 ML DISP.SYRIN IV PRN ×6 (00:22→19:27)
[2019-01-01] MEDS: dextrose 5%-1/2 normal saline 1,000 ML IV SCH ×2 (00:35→05:49)
--- NOTE | 2019-01-01 06:43 | NUR ---
Patient in room [facility]. I have received report from SAROJ Bernal and had the opportunity to ask questions and assume patient care.
[2019-01-01] MEDS: K and/or MAG REPLACEMENT MC SCH (06:56)
--- NOTE | 2019-01-01 06:56 | NUR ---
Problems reprioritized. Patient report given, questions answered & plan of care reviewed with Rosalba KYLE.
[2019-01-01 07:00] VITALS: BP 137/61
[2019-01-01] MEDS: benztropine 1mg tablet PO SCH ×2 (07:04→19:26)
[2019-01-01] MEDS: pantoprazole 40mg Tablet.DR PO SCH (07:05)
[2019-01-01] MEDS: topiramate 100mg tablet PO SCH (07:05)
[2019-01-01] MEDS: levoTHYROXINE 175mcg tablet PO SCH (07:05)
[2019-01-01] MEDS: lactobacillus rhamnosus 10,000 MMU CELLS/CAPSULE PO SCH ×2 (07:05→19:26)
[2019-01-01] MEDS: enoxaparin 40mg/0.4ml syringe SQ SCH (07:06)
[2019-01-01] MEDS: NYSTATIN CREAM - 30GM TUBE TP SCH ×2 (07:09→19:36)
[2019-01-01 11:00] VITALS: BP 139/69
[2019-01-01 18:00] VITALS: BP 126/70
--- NOTE | 2019-01-01 18:45 | NUR ---
Problems reprioritized. Patient report given, questions answered & plan of care reviewed with SAROJ Mckeon.
[2019-01-01] MEDS: Melatonin 3mg tablet PO SCH (21:59)
[2019-01-01] MEDS: HYDROmorphone 1 mg/ml syringe IV PRN (23:49)
[2019-01-02] VITALS: BP 134/62
[2019-01-02] MEDS: metroNIDAZOLE-Flagyl 500mg/NS 100 ML IV SCH ×3 (01:19→16:41)
[2019-01-02] MEDS: HYDROmorphone 1 mg/ml syringe IV PRN ×6 (03:08→23:10)
[2019-01-02] MEDS: dextrose 5%-1/2 normal saline 1,000 ML IV SCH ×3 (03:13→22:08)
[2019-01-02 06:04] LABS: BASOPHILS # (AUTO) 0.1 X10'3 (0-0.2); BASOPHILS % (AUTO) 0.6 % (0-1); EOSINOPHILS # (AUTO) 0.5 X10'3 (0-0.9); EOSINOPHILS % (AUTO) 3.1 % (0-6); HEMATOCRIT 28.9 % (35.0-45.0); LYMPHOCYTES # (AUTO) 1.9 X10'3 (1.1-4.8); MEAN CORPUSCULAR HEMOGLOBIN 24.3 PG (27.0-31.0); MEAN CORPUSCULAR HGB CONC 31.3 g/dL (33.0-36.5); MEAN CORPUSCULAR VOLUME 77.8 FL (78-98); MEAN PLATELET VOLUME 7.3 FL (7.4-10.4); MONOCYTES # (AUTO) 1.5 X10'3 (0-0.9); MONOCYTES % (AUTO) 8.6 % (2-12); NEUTROPHILS # (AUTO) 13.4 X10'3 (1.8-7.7); NEUTROPHILS % (AUTO) 76.7 % (42-75); PLATELET COUNT 614 X10'3 (140-440); RED BLOOD COUNT 3.72 X10'6 (4.20-5.60); RED CELL DISTRIBUTION WIDTH 17.2 % (11.5-14.5); WHITE BLOOD COUNT 17.5 X10'3 (4.5-11.0)
[2019-01-02 06:38] LABS: ALBUMIN 2.1 G/DL (3.4-5.0); ANION GAP 11 (8-16); BLOOD UREA NITROGEN 9 MG/DL (7-18); BUN/CREATININE RATIO 13.2 (6.6-38.0); CALCIUM 8.5 MG/DL (8.5-10.1); CHLORIDE 109 MMOL/L (99-107); CREATININE 0.68 MG/DL (0.40-0.90); GLUCOSE 114 MG/DL (70-104); POTASSIUM 3.6 MMOL/L (3.5-5.1); SODIUM 142 MMOL/L (135-145); TOTAL CARBON DIOXIDE 21.6 MMOL/L (24-32); eGFR 85 ML/MIN
[2019-01-02 07:00] VITALS: BP 140/62
[2019-01-02] MEDS: lactobacillus rhamnosus 10,000 MMU CELLS/CAPSULE PO SCH ×2 (07:38→19:17)
[2019-01-02] MEDS: pantoprazole 40mg Tablet.DR PO SCH (07:38)
[2019-01-02] MEDS: levoTHYROXINE 175mcg tablet PO SCH (07:38)
[2019-01-02] MEDS: topiramate 100mg tablet PO SCH (07:38)
[2019-01-02] MEDS: benztropine 1mg tablet PO SCH ×2 (07:38→19:18)
[2019-01-02] MEDS: enoxaparin 40mg/0.4ml syringe SQ SCH (07:39)
[2019-01-02] MEDS: K and/or MAG REPLACEMENT MC SCH (08:00)
[2019-01-02] MEDS: NYSTATIN CREAM - 30GM TUBE TP SCH ×2 (08:23→19:28)
[2019-01-02] MEDS: aztreonam inj. 1,000 MG in normal saline 100ml IV soln 100 ML IV SCH ×3 (09:55→23:12)
[2019-01-02 11:46] VITALS: BP 132/70
--- NOTE | 2019-01-02 15:40 | NUR ---
Reassessment: Pt placed back on pureed/NTL per [facility] 12/30. PO improved to 50-75% avg past 2 days following BSS. Pt s/p cholecystectomy w/ ascending cholangitis per note. LBM 01/02 w/ some abdominal pain noted. Pt is AOx2 today. Will continue to monitor. Rec: 1. Change to low fat/pureed/NTL diet with texture per ST recs/ 2. magic cup BIDLD 3. wt per rx Addendum: 01/02/19 at [address] Amended: Links added.
--- NOTE | 2019-01-02 18:23 | NUR ---
Patient in room [facility]. I have received report from Lenore KYLE and had the opportunity to ask questions and assume patient care.
[2019-01-02 20:00] VITALS: BP 151/71
[2019-01-02] MEDS: Melatonin 3mg tablet PO SCH (20:51)
[2019-01-03] VITALS: BP 129/67
[2019-01-03] MEDS: metroNIDAZOLE-Flagyl 500mg/NS 100 ML IV SCH ×4 (00:37→23:16)
[2019-01-03 05:27] LABS: BASOPHILS # (AUTO) 0.1 X10'3 (0-0.2); BASOPHILS % (AUTO) 0.5 % (0-1); EOSINOPHILS # (AUTO) 0.4 X10'3 (0-0.9); EOSINOPHILS % (AUTO) 2.3 % (0-6); HEMATOCRIT 30.7 % (35.0-45.0); HEMOGLOBIN 9.5 g/dl (12.0-16.0); LYMPHOCYTES # (AUTO) 1.7 X10'3 (1.1-4.8); LYMPHOCYTES % (AUTO) 10.6 % (21-51); MEAN CORPUSCULAR HEMOGLOBIN 23.9 PG (27.0-31.0); MEAN CORPUSCULAR HGB CONC 30.9 g/dL (33.0-36.5); MEAN CORPUSCULAR VOLUME 77.3 FL (78-98); MONOCYTES # (AUTO) 1.3 X10'3 (0-0.9); MONOCYTES % (AUTO) 8.4 % (2-12); NEUTROPHILS # (AUTO) 12.4 X10'3 (1.8-7.7); NEUTROPHILS % (AUTO) 78.2 % (42-75); PLATELET COUNT 534 X10'3 (140-440); RED BLOOD COUNT 3.97 X10'6 (4.20-5.60); RED CELL DISTRIBUTION WIDTH 17.4 % (11.5-14.5); WHITE BLOOD COUNT 15.8 X10'3 (4.5-11.0)
[2019-01-03] MEDS: HYDROmorphone 1 mg/ml syringe IV PRN ×3 (05:58→14:26)
[2019-01-03 06:26] LABS: ALBUMIN 2.1 G/DL (3.4-5.0); ANION GAP 11 (8-16); BLOOD UREA NITROGEN 9 MG/DL (7-18); BUN/CREATININE RATIO 13.6 (6.6-38.0); CALCIUM 8.2 MG/DL (8.5-10.1); CHLORIDE 111 MMOL/L (99-107); CREATININE 0.66 MG/DL (0.40-0.90); GLUCOSE 123 MG/DL (70-104); POTASSIUM 3.6 MMOL/L (3.5-5.1); SODIUM 141 MMOL/L (135-145); TOTAL CARBON DIOXIDE 19.4 MMOL/L (24-32); eGFR 88 ML/MIN
--- NOTE | 2019-01-03 06:34 | NUR ---
Patient in room [facility]. I have received report from alejo haddad and had the opportunity to ask questions and assume patient care.
--- NOTE | 2019-01-03 06:34 | NUR ---
Problems reprioritized. Patient report given, questions answered & plan of care reviewed with Lenore KYLE.
[2019-01-03 07:00] VITALS: BP 138/85
[2019-01-03] MEDS: lactobacillus rhamnosus 10,000 MMU CELLS/CAPSULE PO SCH ×2 (07:35→20:29)
[2019-01-03] MEDS: topiramate 100mg tablet PO SCH (07:35)
[2019-01-03] MEDS: benztropine 1mg tablet PO SCH ×2 (07:35→20:31)
[2019-01-03] MEDS: pantoprazole 40mg Tablet.DR PO SCH (07:35)
[2019-01-03] MEDS: levoTHYROXINE 175mcg tablet PO SCH (07:35)
[2019-01-03] MEDS: NYSTATIN CREAM - 30GM TUBE TP SCH ×2 (07:36→20:32)
[2019-01-03] MEDS: enoxaparin 40mg/0.4ml syringe SQ SCH (07:36)
[2019-01-03] MEDS: K and/or MAG REPLACEMENT MC SCH (08:00)
[2019-01-03] MEDS: aztreonam inj. 1,000 MG in normal saline 100ml IV soln 100 ML IV SCH (08:44)
[2019-01-03 11:42] VITALS: BP 123/62
[2019-01-03] MEDS ORDERED: HYDROcodone/acetaminophen 5mg/325mg tablet PO PRN (14:35)
[2019-01-03] MEDS ORDERED: magnesium Cl slow-release 64mg tablet PO PRN (16:25)
[2019-01-03] MEDS ORDERED: magnesium 4gm in 100ml NS 100 ML IV PRN (16:25)
[2019-01-03] MEDS ORDERED: potassium CL 10mEq/100ml bag 100 ML IV PRN (16:25)
[2019-01-03] MEDS ORDERED: potassium Cl 20 mEq SR tablet PO PRN ×2 (16:25)
[2019-01-03] MEDS: aztreonam inj. 2,000 MG in dextrose 5%-water 100 ML IV SCH (18:02)
--- NOTE | 2019-01-03 18:24 | NUR ---
Problems reprioritized. Patient report given, questions answered & plan of care reviewed with CHARLES KYLE.
--- NOTE | 2019-01-03 19:26 | NUR ---
Patient in room [facility]. I have received report from Lenore KYLE and had the opportunity to ask questions and assume patient care.
[2019-01-03 20:00] VITALS: BP 138/88
[2019-01-03] MEDS ORDERED: traZODone 50mg tablet PO SCH (20:00)
[2019-01-03] MEDS ORDERED: carVEDilol 12.5mg tablet PO SCH (20:00)
[2019-01-03] MEDS: Melatonin 3mg tablet PO SCH (20:29)
[2019-01-03] MEDS: traZODone 50mg tablet PO SCH (20:30)
[2019-01-03] MEDS: aripiprazole 5mg tablet PO SCH (20:31)
[2019-01-03] MEDS: docusate sod 100mg capsule PO SCH (20:31)
[2019-01-03] MEDS: HYDROcodone/acetaminophen 10/325mg tab PO PRN (20:31)
[2019-01-03] MEDS: dextrose 5%-1/2 normal saline 1,000 ML IV SCH (20:36)
[2019-01-03] MEDS ORDERED: losartan 25mg tablet PO SCH (21:00)
--- NOTE | 2019-01-03 22:30 | NUR ---
Patient in room [facility]. I have received report from SAROJ Pickett and had the opportunity to ask questions and assume patient care.
--- NOTE | 2019-01-03 23:29 | NUR ---
Problems reprioritized. Patient report given, questions answered & plan of care reviewed with Jeffrey KYLE.
[2019-01-04] VITALS: BP 120/72
[2019-01-04] MEDS: aztreonam inj. 2,000 MG in dextrose 5%-water 100 ML IV SCH ×3 (00:22→16:31)
[2019-01-04] MEDS: dextrose 5%-1/2 normal saline 1,000 ML IV SCH (00:23)
--- NOTE | 2019-01-04 02:17 | NUR ---
I agree with SAROJ Pickett's physical assessment
[2019-01-04] MEDS: HYDROcodone/acetaminophen 10/325mg tab PO PRN (05:19)
--- NOTE | 2019-01-04 06:02 | NUR ---
Problems reprioritized. Patient report given, questions answered & plan of care reviewed with SAROJ Quispe.
--- NOTE | 2019-01-04 06:12 | NUR ---
Patient in room [facility]. I have received report from SAROJ Murphy and had the opportunity to ask questions and assume patient care.
[2019-01-04 06:25] LABS: BASOPHILS # (AUTO) 0.1 X10'3 (0-0.2); EOSINOPHILS # (AUTO) 0.3 X10'3 (0-0.9); HEMOGLOBIN 9.3 g/dl (12.0-16.0)
[2019-01-04 06:26] LABS: BASOPHILS % (AUTO) 0.7 % (0-1); EOSINOPHILS % (AUTO) 1.6 % (0-6); HEMATOCRIT 29.3 % (35.0-45.0); LYMPHOCYTES # (AUTO) 1.9 X10'3 (1.1-4.8); LYMPHOCYTES % (AUTO) 11.8 % (21-51); MEAN CORPUSCULAR HEMOGLOBIN 24.4 PG (27.0-31.0); MEAN CORPUSCULAR HGB CONC 31.7 g/dL (33.0-36.5); MEAN CORPUSCULAR VOLUME 76.9 FL (78-98); MEAN PLATELET VOLUME 7.1 FL (7.4-10.4); MONOCYTES # (AUTO) 1.1 X10'3 (0-0.9); MONOCYTES % (AUTO) 6.8 % (2-12); NEUTROPHILS # (AUTO) 12.7 X10'3 (1.8-7.7); NEUTROPHILS % (AUTO) 79.1 % (42-75); PLATELET COUNT 646 X10'3 (140-440); RED BLOOD COUNT 3.81 X10'6 (4.20-5.60); RED CELL DISTRIBUTION WIDTH 17.1 % (11.5-14.5); WHITE BLOOD COUNT 16.1 X10'3 (4.5-11.0)
[2019-01-04 06:32] LABS: ALBUMIN 2.2 G/DL (3.4-5.0); ANION GAP 12 (8-16); BLOOD UREA NITROGEN 11 MG/DL (7-18); BUN/CREATININE RATIO 15.9 (6.6-38.0); CALCIUM 8.4 MG/DL (8.5-10.1); CHLORIDE 110 MMOL/L (99-107); CREATININE 0.69 MG/DL (0.40-0.90); GLUCOSE 129 MG/DL (70-104); PHOSPHORUS 3.2 MG/DL (2.3-4.5); POTASSIUM 3.6 MMOL/L (3.5-5.1); SODIUM 143 MMOL/L (135-145); TOTAL CARBON DIOXIDE 20.8 MMOL/L (24-32); eGFR 84 ML/MIN
[2019-01-04 08:00] VITALS: BP 131/77
[2019-01-04] MEDS: K and/or MAG REPLACEMENT MC SCH (08:00)
[2019-01-04] MEDS ORDERED: gabapentin 400mg capsule PO SCH (08:00)
[2019-01-04] MEDS ORDERED: levoTHYROXINE 175mcg tablet PO SCH (08:00)
[2019-01-04] MEDS: lactobacillus rhamnosus 10,000 MMU CELLS/CAPSULE PO SCH ×2 (08:06→22:59)
[2019-01-04] MEDS: metroNIDAZOLE-Flagyl 500mg/NS 100 ML IV SCH ×2 (08:06→16:09)
[2019-01-04] MEDS: enoxaparin 40mg/0.4ml syringe SQ SCH (08:06)
[2019-01-04] MEDS: docusate sod 100mg capsule PO SCH ×2 (08:06→22:59)
[2019-01-04] MEDS: duloxetine 30mg CAPSULE.DR PO SCH (08:06)
[2019-01-04] MEDS: pantoprazole 40mg Tablet.DR PO SCH (08:06)
[2019-01-04] MEDS: benztropine 1mg tablet PO SCH ×2 (08:07→22:59)
[2019-01-04] MEDS: NYSTATIN CREAM - 30GM TUBE TP SCH ×2 (08:07→23:01)
[2019-01-04] MEDS: topiramate 100mg tablet PO SCH (08:07)
[2019-01-04] MEDS: levoTHYROXINE 75mcg tablet PO SCH (08:12)
[2019-01-04 08:25] LABS: PLATELET ESTIMATE INCREASED; TOTAL CELLS COUNTED 100
--- NOTE | 2019-01-04 08:25 | NUR ---
PAGER ID: [phone] MESSAGE: Brittaney Lizaam [id number] 353 pseudomonas aeruginosa MDRO isolated in VIN drainage. 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
[2019-01-04 08:26] LABS: ANISOCYTOSIS 1+; MICROCYTOSIS 1+
[2019-01-04 08:27] LABS: POLYCHROMASIA FEW
[2019-01-04 11:00] VITALS: BP 132/77
[2019-01-04] MEDS: LORazepam 1 MG tablet PO PRN (12:51)
--- NOTE | 2019-01-04 14:21 | NUR ---
Wound care POC. Arrived at bedside for skin assessment. Explained procedure to pt and pt gave informed verbal consent. Pt is alert and reports no pain at this time. All issues with moisture damage have resolved. Pt states she is very involved in her skin care and notifies staff of any moisture or incontinence so the skin can be cleansed appropriately. Recommend continuing current orders for skin care.
--- NOTE | 2019-01-04 18:52 | NUR ---
Problems reprioritized. Patient report given, questions answered & plan of care reviewed with SAROJ Edge.
[2019-01-04 19:00] VITALS: BP 127/69
[2019-01-04] MEDS: aripiprazole 5mg tablet PO SCH (22:58)
[2019-01-04] MEDS: traZODone 50mg tablet PO SCH (22:59)
[2019-01-04] MEDS: Melatonin 3mg tablet PO SCH (23:00)
[2019-01-04] MEDS: cefepime 1GM in D5W 50mL 50 ML IV SCH (23:45)
[2019-01-05] VITALS: BP 161/71
[2019-01-05] MEDS: metroNIDAZOLE-Flagyl 500mg/NS 100 ML IV SCH ×3 (00:41→17:25)
[2019-01-05 05:15] LABS: BASOPHILS # (AUTO) 0.1 X10'3 (0-0.2); EOSINOPHILS # (AUTO) 0.2 X10'3 (0-0.9); MONOCYTES # (AUTO) 1.2 X10'3 (0-0.9); PLATELET COUNT 615 X10'3 (140-440)
[2019-01-05 05:17] LABS: BASOPHILS % (AUTO) 0.7 % (0-1); EOSINOPHILS % (AUTO) 1.5 % (0-6); HEMOGLOBIN 9.8 g/dl (12.0-16.0); LYMPHOCYTES # (AUTO) 1.2 X10'3 (1.1-4.8); LYMPHOCYTES % (AUTO) 7.7 % (21-51); MEAN CORPUSCULAR HEMOGLOBIN 24.3 PG (27.0-31.0); MEAN CORPUSCULAR HGB CONC 31.7 g/dL (33.0-36.5); MEAN CORPUSCULAR VOLUME 76.5 FL (78-98); MEAN PLATELET VOLUME 7.3 FL (7.4-10.4); MONOCYTES % (AUTO) 7.7 % (2-12); NEUTROPHILS # (AUTO) 12.5 X10'3 (1.8-7.7); NEUTROPHILS % (AUTO) 82.4 % (42-75); RED BLOOD COUNT 4.05 X10'6 (4.20-5.60); RED CELL DISTRIBUTION WIDTH 16.9 % (11.5-14.5); WHITE BLOOD COUNT 15.1 X10'3 (4.5-11.0)
[2019-01-05 05:40] LABS: ALBUMIN 2.4 G/DL (3.4-5.0); ANION GAP 12 (8-16); BLOOD UREA NITROGEN 10 MG/DL (7-18); BUN/CREATININE RATIO 15.2 (6.6-38.0); CALCIUM 8.9 MG/DL (8.5-10.1); CHLORIDE 108 MMOL/L (99-107); CREATININE 0.66 MG/DL (0.40-0.90); GLUCOSE 114 MG/DL (70-104); MAGNESIUM 1.9 MG/DL (1.5-2.4); PHOSPHORUS 3.7 MG/DL (2.3-4.5); POTASSIUM 3.8 MMOL/L (3.5-5.1); SODIUM 142 MMOL/L (135-145); TOTAL CARBON DIOXIDE 22.2 MMOL/L (24-32); eGFR 88 ML/MIN
[2019-01-05 07:00] VITALS: BP 145/70
--- NOTE | 2019-01-05 07:27 | NUR ---
Patient in room [facility]. I have received report from Kely KYLE and had the opportunity to ask questions and assume patient care.
[2019-01-05] MEDS: docusate sod 100mg capsule PO SCH ×2 (08:00→22:57)
[2019-01-05] MEDS: K and/or MAG REPLACEMENT MC SCH (08:00)
[2019-01-05] MEDS: NYSTATIN CREAM - 30GM TUBE TP SCH (08:00)
[2019-01-05] MEDS: cefepime 1GM in D5W 50mL 50 ML IV SCH ×2 (08:06→16:24)
[2019-01-05 08:07] LABS: ANISOCYTOSIS 1+; MICROCYTOSIS 1+; PLATELET ESTIMATE INCREASED; POLYCHROMASIA FEW
[2019-01-05] MEDS: topiramate 100mg tablet PO SCH (08:07)
[2019-01-05] MEDS: levoTHYROXINE 75mcg tablet PO SCH (08:07)
[2019-01-05] MEDS: benztropine 1mg tablet PO SCH ×2 (08:07→22:56)
[2019-01-05] MEDS: HYDROcodone/acetaminophen 10/325mg tab PO PRN ×3 (08:08→22:56)
[2019-01-05] MEDS: lactobacillus rhamnosus 10,000 MMU CELLS/CAPSULE PO SCH ×2 (08:08→22:58)
[2019-01-05] MEDS: duloxetine 30mg CAPSULE.DR PO SCH (08:08)
[2019-01-05] MEDS: enoxaparin 40mg/0.4ml syringe SQ SCH (08:08)
[2019-01-05] MEDS: pantoprazole 40mg Tablet.DR PO SCH (08:08)
[2019-01-05] MEDS: LORazepam 1 MG tablet PO PRN (10:01)
[2019-01-05 11:00] VITALS: BP 125/79
[2019-01-05] MEDS ORDERED: iohexol 300mg/ml 100ml inj. ONE (11:07)
--- NOTE | 2019-01-05 18:40 | NUR ---
Problems reprioritized. Patient report given, questions answered & plan of care reviewed with Kely KYLE.
[2019-01-05 20:00] VITALS: BP 132/61
[2019-01-05] MEDS: traZODone 50mg tablet PO SCH (22:57)
[2019-01-05] MEDS: aripiprazole 5mg tablet PO SCH (22:57)
[2019-01-05] MEDS: Melatonin 3mg tablet PO SCH (22:57)
[2019-01-05] MEDS: nystatin 15 GM powder TP SCH (22:58)
[2019-01-06] VITALS: BP 134/63
[2019-01-06] MEDS: cefepime 1GM in D5W 50mL 50 ML IV SCH ×2 (00:34→08:26)
[2019-01-06] MEDS: metroNIDAZOLE-Flagyl 500mg/NS 100 ML IV SCH ×3 (01:14→16:01)
--- NOTE | 2019-01-06 06:25 | NUR ---
Patient in room [facility]. I have received report from SAROJ Edge and had the opportunity to ask questions and assume patient care.
[2019-01-06 06:31] LABS: ALBUMIN 2.3 G/DL (3.4-5.0); ANION GAP 10 (8-16); BLOOD UREA NITROGEN 13 MG/DL (7-18); BUN/CREATININE RATIO 19.1 (6.6-38.0); CALCIUM 8.8 MG/DL (8.5-10.1); CHLORIDE 108 MMOL/L (99-107); CREATININE 0.68 MG/DL (0.40-0.90); GLUCOSE 127 MG/DL (70-104); POTASSIUM 3.6 MMOL/L (3.5-5.1); SODIUM 140 MMOL/L (135-145); TOTAL CARBON DIOXIDE 22.2 MMOL/L (24-32); eGFR 85 ML/MIN
[2019-01-06 06:37] LABS: BASOPHILS # (AUTO) 0.1 X10'3 (0-0.2); EOSINOPHILS # (AUTO) 0.4 X10'3 (0-0.9); EOSINOPHILS % (AUTO) 3.5 % (0-6); HEMATOCRIT 29.3 % (35.0-45.0); HEMOGLOBIN 9.4 g/dl (12.0-16.0); LYMPHOCYTES # (AUTO) 0.7 X10'3 (1.1-4.8); LYMPHOCYTES % (AUTO) 6.5 % (21-51); MEAN CORPUSCULAR HEMOGLOBIN 24.3 PG (27.0-31.0); MEAN CORPUSCULAR VOLUME 76.1 FL (78-98); MEAN PLATELET VOLUME 7.2 FL (7.4-10.4); MONOCYTES # (AUTO) 1.1 X10'3 (0-0.9); MONOCYTES % (AUTO) 9.5 % (2-12); NEUTROPHILS % (AUTO) 79.5 % (42-75); PLATELET COUNT 584 X10'3 (140-440); RED BLOOD COUNT 3.85 X10'6 (4.20-5.60); RED CELL DISTRIBUTION WIDTH 16.6 % (11.5-14.5); WHITE BLOOD COUNT 11.4 X10'3 (4.5-11.0)
[2019-01-06 07:00] VITALS: BP 130/69
[2019-01-06] MEDS: K and/or MAG REPLACEMENT MC SCH (07:07)
[2019-01-06] MEDS: lactobacillus rhamnosus 10,000 MMU CELLS/CAPSULE PO SCH ×2 (07:21→20:59)
[2019-01-06] MEDS: benztropine 1mg tablet PO SCH ×2 (07:21→20:59)
[2019-01-06] MEDS: duloxetine 30mg CAPSULE.DR PO SCH (07:22)
[2019-01-06] MEDS: levoTHYROXINE 75mcg tablet PO SCH (07:22)
[2019-01-06] MEDS: pantoprazole 40mg Tablet.DR PO SCH (07:22)
[2019-01-06] MEDS: topiramate 100mg tablet PO SCH (07:22)
[2019-01-06] MEDS: nystatin 15 GM powder TP SCH ×3 (07:23→21:04)
[2019-01-06] MEDS: docusate sod 100mg capsule PO SCH ×2 (07:24→20:59)
[2019-01-06] MEDS: enoxaparin 40mg/0.4ml syringe SQ SCH (07:25)
[2019-01-06] MEDS: LORazepam 1 MG tablet PO PRN ×3 (08:26→21:01)
[2019-01-06 11:00] VITALS: BP 138/75
[2019-01-06] MEDS: HYDROcodone/acetaminophen 10/325mg tab PO PRN (14:40)
--- NOTE | 2019-01-06 16:13 | NUR ---
Reassessment: Pt s/p BSS 01/[address] recs to continue pureed food with thin liquids d/t pt tolerating however with difficulty chewing r/t being edentulous. Pt with fluctuating PO intake overall 50% however documented to have refused two meals 01/04 and with 25% PO intake 01/05; pending documentation of PO intake today. Recommend Ensure pudding TID to provide additional food options and optimize PO intake. Pt also receiving Magic Cup BIDLD. LBM 01/05. Per MD notes pt still with hepatic abscess however CT shows improvement in fluid collection. Will continue to follow. Rec: 1. Change to low fat/pureed diet with texture per ST recs/ 2. magic cup BIDLD; Ensure pudding TID 3. wt per rx Addendum: 01/06/19 at [address] Amended: Links added.
--- NOTE | 2019-01-06 18:10 | NUR ---
Problems reprioritized. Patient report given, questions answered & plan of care reviewed with Mandy Galvan RN.
--- NOTE | 2019-01-06 18:30 | NUR ---
Patient in room [facility]. I have received report from JOSE ANTONIO KYLE and had the opportunity to ask questions and assume patient care.
[2019-01-06 20:00] VITALS: BP 139/72
[2019-01-06] MEDS: Melatonin 3mg tablet PO SCH (20:59)
[2019-01-06] MEDS: aripiprazole 5mg tablet PO SCH (20:59)
[2019-01-06] MEDS: cefepime inj 2 GM in dextrose 5%-water 50ml 50 ML IV SCH (20:59)
[2019-01-06] MEDS: traZODone 50mg tablet PO SCH (21:00)
[2019-01-07] VITALS: BP 138/68
[2019-01-07] MEDS: metroNIDAZOLE-Flagyl 500mg/NS 100 ML IV SCH ×4 (00:46→23:43)
[2019-01-07] MEDS: HYDROcodone/acetaminophen 10/325mg tab PO PRN ×2 (04:11→23:39)
[2019-01-07] MEDS: LORazepam 1 MG tablet PO PRN ×3 (05:36→20:17)
[2019-01-07 05:58] LABS: BASOPHILS # (AUTO) 0.1 X10'3 (0-0.2); BASOPHILS % (AUTO) 1.2 % (0-1); EOSINOPHILS # (AUTO) 0.4 X10'3 (0-0.9); EOSINOPHILS % (AUTO) 3.6 % (0-6); HEMATOCRIT 28.7 % (35.0-45.0); HEMOGLOBIN 9.3 g/dl (12.0-16.0); LYMPHOCYTES # (AUTO) 1.1 X10'3 (1.1-4.8); LYMPHOCYTES % (AUTO) 10.2 % (21-51); MEAN CORPUSCULAR HEMOGLOBIN 24.7 PG (27.0-31.0); MEAN CORPUSCULAR HGB CONC 32.4 g/dL (33.0-36.5); MEAN CORPUSCULAR VOLUME 76.4 FL (78-98); MEAN PLATELET VOLUME 7.2 FL (7.4-10.4); MONOCYTES # (AUTO) 1.2 X10'3 (0-0.9); MONOCYTES % (AUTO) 11.3 % (2-12); NEUTROPHILS # (AUTO) 7.9 X10'3 (1.8-7.7); NEUTROPHILS % (AUTO) 73.7 % (42-75); PLATELET COUNT 534 X10'3 (140-440); RED BLOOD COUNT 3.76 X10'6 (4.20-5.60); RED CELL DISTRIBUTION WIDTH 16.9 % (11.5-14.5); WHITE BLOOD COUNT 10.7 X10'3 (4.5-11.0)
[2019-01-07 06:00] VITALS: BP 123/63
[2019-01-07 06:08] LABS: ALBUMIN 2.3 G/DL (3.4-5.0); ANION GAP 12 (8-16); BLOOD UREA NITROGEN 13 MG/DL (7-18); BUN/CREATININE RATIO 18.1 (6.6-38.0); CALCIUM 8.8 MG/DL (8.5-10.1); CHLORIDE 107 MMOL/L (99-107); CREATININE 0.72 MG/DL (0.40-0.90); GLUCOSE 125 MG/DL (70-104); MAGNESIUM 1.7 MG/DL (1.5-2.4); PHOSPHORUS 3.3 MG/DL (2.3-4.5); POTASSIUM 3.3 MMOL/L (3.5-5.1); SODIUM 141 MMOL/L (135-145); TOTAL CARBON DIOXIDE 21.6 MMOL/L (24-32); eGFR 80 ML/MIN
--- NOTE | 2019-01-07 06:27 | NUR ---
Problems reprioritized. Patient report given, questions answered & plan of care reviewed with JOSE ANTONIO KYLE.
--- NOTE | 2019-01-07 06:28 | NUR ---
Patient in room [facility]. I have received report from Mandy Galvan RN and had the opportunity to ask questions and assume patient care.
[2019-01-07] MEDS: K and/or MAG REPLACEMENT MC SCH (08:00)
[2019-01-07] MEDS: docusate sod 100mg capsule PO SCH ×2 (08:00→20:16)
[2019-01-07] MEDS: enoxaparin 40mg/0.4ml syringe SQ SCH (08:00)
[2019-01-07] MEDS: benztropine 1mg tablet PO SCH ×2 (08:26→20:15)
[2019-01-07] MEDS: pantoprazole 40mg Tablet.DR PO SCH (08:27)
[2019-01-07] MEDS: levoTHYROXINE 75mcg tablet PO SCH (08:27)
[2019-01-07] MEDS: duloxetine 30mg CAPSULE.DR PO SCH (08:27)
[2019-01-07] MEDS: lactobacillus rhamnosus 10,000 MMU CELLS/CAPSULE PO SCH ×2 (08:27→20:16)
[2019-01-07] MEDS: topiramate 100mg tablet PO SCH (08:28)
[2019-01-07] MEDS: nystatin 15 GM powder TP SCH ×3 (08:44→21:36)
[2019-01-07] MEDS ORDERED: magnesium Cl slow-release 64mg tablet PO PRN (09:55)
[2019-01-07] MEDS ORDERED: potassium CL 10mEq/100ml bag 100 ML IV PRN (09:55)
[2019-01-07] MEDS ORDERED: magnesium 4gm in 100ml NS 100 ML IV PRN (09:55)
[2019-01-07] MEDS ORDERED: potassium Cl 20 mEq SR tablet PO PRN (09:55)
[2019-01-07] MEDS: cefepime inj 2 GM in dextrose 5%-water 50ml 50 ML IV SCH ×2 (10:11→20:15)
[2019-01-07] MEDS: potassium Cl 20 mEq SR tablet PO PRN ×3 (10:11→20:37)
[2019-01-07 11:00] VITALS: BP 114/58
--- NOTE | 2019-01-07 18:19 | NUR ---
Problems reprioritized. Patient report given, questions answered & plan of care reviewed with Mandy Galvan RN.
--- NOTE | 2019-01-07 18:30 | NUR ---
Patient in room [facility]. I have received report from JOSE ANTONIO KYLE and had the opportunity to ask questions and assume patient care.
[2019-01-07 20:00] VITALS: BP 115/52
[2019-01-07] MEDS: aripiprazole 5mg tablet PO SCH (20:15)
[2019-01-07] MEDS: traZODone 50mg tablet PO SCH (20:16)
[2019-01-07] MEDS: Melatonin 3mg tablet PO SCH (20:16)
[2019-01-08] VITALS: BP 132/68
--- NOTE | 2019-01-08 06:22 | NUR ---
Problems reprioritized. Patient report given, questions answered & plan of care reviewed with BRANDON RN.
--- NOTE | 2019-01-08 06:25 | NUR ---
Patient in room [facility]. I have received report from Mandy Galvan RN and had the opportunity to ask questions and assume patient care.
[2019-01-08 07:00] VITALS: BP 117/67
[2019-01-08] MEDS: pantoprazole 40mg Tablet.DR PO SCH (07:47)
[2019-01-08] MEDS: topiramate 100mg tablet PO SCH (07:47)
[2019-01-08] MEDS: benztropine 1mg tablet PO SCH ×2 (07:47→20:18)
[2019-01-08] MEDS: levoTHYROXINE 75mcg tablet PO SCH (07:47)
[2019-01-08] MEDS: metroNIDAZOLE-Flagyl 500mg/NS 100 ML IV SCH ×3 (07:48→23:29)
[2019-01-08] MEDS: nystatin 15 GM powder TP SCH ×3 (07:48→20:22)
[2019-01-08] MEDS: duloxetine 30mg CAPSULE.DR PO SCH (07:48)
[2019-01-08] MEDS: lactobacillus rhamnosus 10,000 MMU CELLS/CAPSULE PO SCH ×2 (07:48→20:18)
[2019-01-08] MEDS: enoxaparin 40mg/0.4ml syringe SQ SCH (07:49)
[2019-01-08] MEDS: docusate sod 100mg capsule PO SCH ×3 (07:52→20:22)
[2019-01-08] MEDS: K and/or MAG REPLACEMENT MC SCH (08:00)
[2019-01-08] MEDS: HYDROcodone/acetaminophen 10/325mg tab PO PRN ×3 (08:09→20:44)
[2019-01-08] MEDS: LORazepam 1 MG tablet PO PRN ×3 (10:13→22:34)
[2019-01-08] MEDS: cefepime inj 2 GM in dextrose 5%-water 50ml 50 ML IV SCH ×2 (10:13→20:18)
[2019-01-08 10:59] LABS: BASOPHILS # (AUTO) 0.2 X10'3 (0-0.2); BASOPHILS % (AUTO) 1.7 % (0-1); EOSINOPHILS # (AUTO) 0.3 X10'3 (0-0.9); EOSINOPHILS % (AUTO) 2.8 % (0-6); HEMATOCRIT 32.8 % (35.0-45.0); LYMPHOCYTES # (AUTO) 1.3 X10'3 (1.1-4.8); LYMPHOCYTES % (AUTO) 10.5 % (21-51); MEAN CORPUSCULAR HEMOGLOBIN 23.6 PG (27.0-31.0); MEAN CORPUSCULAR HGB CONC 30.6 g/dL (33.0-36.5); MEAN CORPUSCULAR VOLUME 77.1 FL (78-98); MEAN PLATELET VOLUME 7.6 FL (7.4-10.4); MONOCYTES # (AUTO) 1.2 X10'3 (0-0.9); MONOCYTES % (AUTO) 9.7 % (2-12); NEUTROPHILS # (AUTO) 9.1 X10'3 (1.8-7.7); NEUTROPHILS % (AUTO) 75.3 % (42-75); PLATELET COUNT 544 X10'3 (140-440); RED BLOOD COUNT 4.26 X10'6 (4.20-5.60); RED CELL DISTRIBUTION WIDTH 17.1 % (11.5-14.5); WHITE BLOOD COUNT 12.1 X10'3 (4.5-11.0)
[2019-01-08 11:00] VITALS: BP 141/76
[2019-01-08 11:06] LABS: ALANINE AMINOTRANSFERASE 13 U/L (12-78); ALBUMIN 2.7 G/DL (3.4-5.0); ALBUMIN/GLOBULIN RATIO 0.5 (1.1-1.5); ALKALINE PHOSPHATASE 78 IU/L (46-116); ANION GAP 12 (8-16); ASPARTATE AMINO TRANSFERASE 6 U/L (10-37); BILIRUBIN,TOTAL 0.3 MG/DL (0.1-1.0); BLOOD UREA NITROGEN 11 MG/DL (7-18); BUN/CREATININE RATIO 16.4 (6.6-38.0); CALCIUM 8.9 MG/DL (8.5-10.1); CHLORIDE 104 MMOL/L (99-107); CREATININE 0.67 MG/DL (0.40-0.90); GLUCOSE 111 MG/DL (70-104); PHOSPHORUS 2.7 MG/DL (2.3-4.5); POTASSIUM 4.3 MMOL/L (3.5-5.1); SODIUM 138 MMOL/L (135-145); TOTAL CARBON DIOXIDE 22.4 MMOL/L (24-32); TOTAL PROTEIN 7.9 G/DL (6.4-8.2); eGFR 87 ML/MIN
[2019-01-08 18:00] VITALS: BP 115/67
--- NOTE | 2019-01-08 18:27 | NUR ---
Patient in room [facility]. I have received report from Devyn KYLE and had the opportunity to ask questions and assume patient care.
[2019-01-08] MEDS: traZODone 50mg tablet PO SCH (20:22)
[2019-01-08] MEDS: Melatonin 3mg tablet PO SCH (20:22)
[2019-01-08] MEDS: aripiprazole 5mg tablet PO SCH (20:22)
[2019-01-09] VITALS: BP 117/69
[2019-01-09 06:26] LABS: BASOPHILS # (AUTO) 0.1 X10'3 (0-0.2); BASOPHILS % (AUTO) 1.4 % (0-1); EOSINOPHILS # (AUTO) 0.3 X10'3 (0-0.9); EOSINOPHILS % (AUTO) 3.2 % (0-6); HEMOGLOBIN 10.4 g/dl (12.0-16.0); LYMPHOCYTES # (AUTO) 1.7 X10'3 (1.1-4.8); LYMPHOCYTES % (AUTO) 17.6 % (21-51); MEAN CORPUSCULAR HEMOGLOBIN 24.3 PG (27.0-31.0); MEAN CORPUSCULAR HGB CONC 31.5 g/dL (33.0-36.5); MEAN CORPUSCULAR VOLUME 77.1 FL (78-98); MEAN PLATELET VOLUME 7.6 FL (7.4-10.4); MONOCYTES % (AUTO) 10.7 % (2-12); NEUTROPHILS # (AUTO) 6.4 X10'3 (1.8-7.7); NEUTROPHILS % (AUTO) 67.1 % (42-75); PLATELET COUNT 471 X10'3 (140-440); RED BLOOD COUNT 4.28 X10'6 (4.20-5.60); RED CELL DISTRIBUTION WIDTH 17.1 % (11.5-14.5); WHITE BLOOD COUNT 9.6 X10'3 (4.5-11.0)
--- NOTE | 2019-01-09 06:30 | NUR ---
Patient in room [facility]. I have received report from BG KYLE and had the opportunity to ask questions and assume patient care.
--- NOTE | 2019-01-09 06:35 | NUR ---
Problems reprioritized. Patient report given, questions answered & plan of care reviewed with Pawan RN.
[2019-01-09 06:51] LABS: ALANINE AMINOTRANSFERASE 10 U/L (12-78); ALBUMIN 2.7 G/DL (3.4-5.0); ALBUMIN/GLOBULIN RATIO 0.5 (1.1-1.5); ALKALINE PHOSPHATASE 76 IU/L (46-116); ANION GAP 10 (8-16); ASPARTATE AMINO TRANSFERASE 7 U/L (10-37); BILIRUBIN,TOTAL 0.3 MG/DL (0.1-1.0); BLOOD UREA NITROGEN 10 MG/DL (7-18); BUN/CREATININE RATIO 15.2 (6.6-38.0); CALCIUM 9.2 MG/DL (8.5-10.1); CHLORIDE 107 MMOL/L (99-107); CREATININE 0.66 MG/DL (0.40-0.90); GLUCOSE 116 MG/DL (70-104); SODIUM 140 MMOL/L (135-145); TOTAL PROTEIN 7.9 G/DL (6.4-8.2); eGFR 88 ML/MIN
[2019-01-09 07:00] VITALS: BP 124/70
[2019-01-09] MEDS: K and/or MAG REPLACEMENT MC SCH (08:00)
[2019-01-09] MEDS: docusate sod 100mg capsule PO SCH ×2 (08:00→20:06)
[2019-01-09] MEDS: levoTHYROXINE 75mcg tablet PO SCH (08:51)
[2019-01-09] MEDS: lactobacillus rhamnosus 10,000 MMU CELLS/CAPSULE PO SCH ×2 (08:51→20:05)
[2019-01-09] MEDS: benztropine 1mg tablet PO SCH ×2 (08:52→20:05)
[2019-01-09] MEDS: duloxetine 30mg CAPSULE.DR PO SCH (08:52)
[2019-01-09] MEDS: HYDROcodone/acetaminophen 10/325mg tab PO PRN ×4 (08:53→23:27)
[2019-01-09] MEDS: topiramate 100mg tablet PO SCH (08:54)
[2019-01-09] MEDS: pantoprazole 40mg Tablet.DR PO SCH (08:54)
[2019-01-09] MEDS: nystatin 15 GM powder TP SCH ×3 (08:55→20:06)
[2019-01-09] MEDS: cefepime inj 2 GM in dextrose 5%-water 50ml 50 ML IV SCH ×2 (08:56→20:05)
[2019-01-09] MEDS: enoxaparin 40mg/0.4ml syringe SQ SCH (09:03)
[2019-01-09] MEDS: metroNIDAZOLE-Flagyl 500mg/NS 100 ML IV SCH ×3 (10:09→23:27)
[2019-01-09 11:00] VITALS: BP 131/59
--- NOTE | 2019-01-09 17:06 | NUR ---
Reassessment: Pt PO 25-50% avg meals post-op w/ magic cup BIDLD. Ensure pudding TIDWM added for additional protein/kcal needs. [facility] 01/07. Will continue to monitor. Rec: 1. Change to low fat/pureed diet with texture per ST recs/MD 2. magic cup BIDLD; Ensure pudding TID 3. wt per rx Addendum: 01/09/19 at [address] Amended: Links added.
[2019-01-09 18:00] VITALS: BP 127/73
--- NOTE | 2019-01-09 18:30 | NUR ---
Problems reprioritized. Patient report given, questions answered & plan of care reviewed with MARIA ESTHER KYLE.
--- NOTE | 2019-01-09 19:10 | NUR ---
Patient in room [facility]. I have received report from SAROJ Villalta and had the opportunity to ask questions and assume patient care. Addendum: 01/09/19 at 1911 by Anne Silva RN Amended: Links added.
[2019-01-09] MEDS: traZODone 50mg tablet PO SCH (20:05)
[2019-01-09] MEDS: aripiprazole 5mg tablet PO SCH (20:05)
[2019-01-09] MEDS: Melatonin 3mg tablet PO SCH (20:06)
[2019-01-09] MEDS: diatr meglu/diatrizoate 30ml oral sol.-(3 dose) bottle PO SCH (22:11)
[2019-01-10] VITALS: BP 116/64
[2019-01-10] MEDS: HYDROcodone/acetaminophen 10/325mg tab PO PRN ×4 (04:50→20:33)
--- NOTE | 2019-01-10 06:16 | NUR ---
Problems reprioritized. Patient report given, questions answered & plan of care reviewed with SAROJ Nelson. Addendum: 01/10/19 at 0616 by Anne Silva RN Amended: Links added.
--- NOTE | 2019-01-10 06:55 | NUR ---
Patient in room [facility]. I have received report from Anne KYLE and had the opportunity to ask questions and assume patient care.
[2019-01-10 07:25] LABS: BASOPHILS # (AUTO) 0.1 X10'3 (0-0.2); BASOPHILS % (AUTO) 1.2 % (0-1); EOSINOPHILS # (AUTO) 0.3 X10'3 (0-0.9); EOSINOPHILS % (AUTO) 3.2 % (0-6); HEMATOCRIT 30.5 % (35.0-45.0); HEMOGLOBIN 9.7 g/dl (12.0-16.0); LYMPHOCYTES # (AUTO) 1.2 X10'3 (1.1-4.8); LYMPHOCYTES % (AUTO) 12.9 % (21-51); MEAN CORPUSCULAR HEMOGLOBIN 24.2 PG (27.0-31.0); MEAN CORPUSCULAR HGB CONC 31.9 g/dL (33.0-36.5); MEAN CORPUSCULAR VOLUME 76.1 FL (78-98); MEAN PLATELET VOLUME 7.3 FL (7.4-10.4); MONOCYTES % (AUTO) 10.9 % (2-12); NEUTROPHILS # (AUTO) 6.9 X10'3 (1.8-7.7); NEUTROPHILS % (AUTO) 71.8 % (42-75); PLATELET COUNT 401 X10'3 (140-440); RED BLOOD COUNT 4.02 X10'6 (4.20-5.60); RED CELL DISTRIBUTION WIDTH 16.8 % (11.5-14.5); WHITE BLOOD COUNT 9.6 X10'3 (4.5-11.0)
[2019-01-10 07:47] LABS: ALANINE AMINOTRANSFERASE 13 U/L (12-78); ALBUMIN 2.6 G/DL (3.4-5.0); ALBUMIN/GLOBULIN RATIO 0.5 (1.1-1.5); ALKALINE PHOSPHATASE 72 IU/L (46-116); ANION GAP 9 (8-16); ASPARTATE AMINO TRANSFERASE 11 U/L (10-37); BILIRUBIN,TOTAL 0.3 MG/DL (0.1-1.0); BLOOD UREA NITROGEN 12 MG/DL (7-18); BUN/CREATININE RATIO 17.1 (6.6-38.0); CALCIUM 8.9 MG/DL (8.5-10.1); CHLORIDE 105 MMOL/L (99-107); GLUCOSE 120 MG/DL (70-104); POTASSIUM 3.9 MMOL/L (3.5-5.1); SODIUM 140 MMOL/L (135-145); TOTAL CARBON DIOXIDE 26.2 MMOL/L (24-32); TOTAL PROTEIN 7.6 G/DL (6.4-8.2); eGFR 82 ML/MIN
[2019-01-10 07:51] VITALS: BP 130/68
[2019-01-10] MEDS: K and/or MAG REPLACEMENT MC SCH (08:00)
[2019-01-10] MEDS: docusate sod 100mg capsule PO SCH ×2 (08:00→20:00)
[2019-01-10] MEDS: diatr meglu/diatrizoate 30ml oral sol.-(3 dose) bottle PO SCH ×2 (08:07→10:37)
[2019-01-10] MEDS: pantoprazole 40mg Tablet.DR PO SCH (08:10)
[2019-01-10] MEDS: lactobacillus rhamnosus 10,000 MMU CELLS/CAPSULE PO SCH ×2 (08:10→20:32)
[2019-01-10] MEDS: topiramate 100mg tablet PO SCH (08:10)
[2019-01-10] MEDS: duloxetine 30mg CAPSULE.DR PO SCH (08:10)
[2019-01-10] MEDS: benztropine 1mg tablet PO SCH ×2 (08:10→20:32)
[2019-01-10] MEDS: levoTHYROXINE 75mcg tablet PO SCH (08:10)
[2019-01-10] MEDS: metroNIDAZOLE-Flagyl 500mg/NS 100 ML IV SCH ×3 (08:11→23:39)
[2019-01-10] MEDS: enoxaparin 40mg/0.4ml syringe SQ SCH (08:11)
[2019-01-10] MEDS: nystatin 15 GM powder TP SCH ×3 (08:11→20:33)
--- NOTE | 2019-01-10 09:30 | NUR ---
intern architect requesting a check on Extended PIV. Extended PIV cleaned and allow to dry for appropriate time. Line flushes without difficutly, jacket changer notified
[2019-01-10] MEDS: cefepime inj 2 GM in dextrose 5%-water 50ml 50 ML IV SCH ×2 (09:38→20:31)
[2019-01-10] MEDS: ondansetron/PF 4mg/2ml inj IV PRN (09:38)
[2019-01-10] MEDS: LORazepam 1 MG tablet PO PRN (10:20)
[2019-01-10] MEDS ORDERED: iohexol 300mg/ml 100ml inj. ONE (10:38)
--- NOTE | 2019-01-10 10:41 | NUR ---
Patient taken down for CT via w/c.
[2019-01-10 11:22] VITALS: BP 122/66
[2019-01-10 18:00] VITALS: BP 132/64
--- NOTE | 2019-01-10 18:45 | NUR ---
Problems reprioritized. Patient report given, questions answered & plan of care reviewed with Anne KYLE.
--- NOTE | 2019-01-10 19:25 | NUR ---
Patient in room [facility]. I have received report from SAROJ Nelson and had the opportunity to ask questions and assume patient care. Addendum: 01/10/19 at 1926 by Anne Silva RN Amended: Links added.
[2019-01-10] MEDS: aripiprazole 5mg tablet PO SCH (20:32)
[2019-01-10] MEDS: traZODone 50mg tablet PO SCH (20:32)
[2019-01-10] MEDS: Melatonin 3mg tablet PO SCH (20:32)
[2019-01-11] VITALS: BP 130/80
[2019-01-11] MEDS: HYDROcodone/acetaminophen 10/325mg tab PO PRN ×3 (05:17→20:05)
[2019-01-11 05:56] LABS: BASOPHILS # (AUTO) 0.1 X10'3 (0-0.2); BASOPHILS % (AUTO) 1.3 % (0-1); EOSINOPHILS # (AUTO) 0.2 X10'3 (0-0.9); EOSINOPHILS % (AUTO) 2.9 % (0-6); HEMATOCRIT 30.3 % (35.0-45.0); HEMOGLOBIN 9.6 g/dl (12.0-16.0); LYMPHOCYTES # (AUTO) 1.5 X10'3 (1.1-4.8); LYMPHOCYTES % (AUTO) 19.8 % (21-51); MEAN CORPUSCULAR HEMOGLOBIN 24.4 PG (27.0-31.0); MEAN CORPUSCULAR HGB CONC 31.6 g/dL (33.0-36.5); MEAN CORPUSCULAR VOLUME 77.2 FL (78-98); MEAN PLATELET VOLUME 7.7 FL (7.4-10.4); MONOCYTES # (AUTO) 1.1 X10'3 (0-0.9); MONOCYTES % (AUTO) 15.3 % (2-12); NEUTROPHILS # (AUTO) 4.5 X10'3 (1.8-7.7); NEUTROPHILS % (AUTO) 60.7 % (42-75); PLATELET COUNT 356 X10'3 (140-440); RED BLOOD COUNT 3.92 X10'6 (4.20-5.60); RED CELL DISTRIBUTION WIDTH 16.6 % (11.5-14.5); WHITE BLOOD COUNT 7.4 X10'3 (4.5-11.0)
[2019-01-11 06:10] LABS: ALANINE AMINOTRANSFERASE 11 U/L (12-78); ALBUMIN 2.5 G/DL (3.4-5.0); ALBUMIN/GLOBULIN RATIO 0.5 (1.1-1.5); ALKALINE PHOSPHATASE 70 IU/L (46-116); ANION GAP 6 (8-16); ASPARTATE AMINO TRANSFERASE 10 U/L (10-37); BILIRUBIN,TOTAL 0.3 MG/DL (0.1-1.0); BLOOD UREA NITROGEN 13 MG/DL (7-18); BUN/CREATININE RATIO 16.3 (6.6-38.0); CALCIUM 8.9 MG/DL (8.5-10.1); CHLORIDE 106 MMOL/L (99-107); GLUCOSE 109 MG/DL (70-104); POTASSIUM 3.8 MMOL/L (3.5-5.1); SODIUM 139 MMOL/L (135-145); TOTAL CARBON DIOXIDE 26.8 MMOL/L (24-32); TOTAL PROTEIN 7.3 G/DL (6.4-8.2); eGFR 71 ML/MIN
--- NOTE | 2019-01-11 06:18 | NUR ---
Problems reprioritized. Patient report given, questions answered & plan of care reviewed with SAROJ Grover. Addendum: 01/11/19 at 0618 by Anne Silva RN Amended: Links added.
[2019-01-11] MEDS: K and/or MAG REPLACEMENT MC SCH (06:52)
[2019-01-11 07:00] VITALS: BP 116/62
[2019-01-11] MEDS: metroNIDAZOLE-Flagyl 500mg/NS 100 ML IV SCH (07:19)
[2019-01-11] MEDS: benztropine 1mg tablet PO SCH ×2 (07:20→20:04)
[2019-01-11] MEDS: levoTHYROXINE 75mcg tablet PO SCH (07:20)
[2019-01-11] MEDS: lactobacillus rhamnosus 10,000 MMU CELLS/CAPSULE PO SCH ×2 (07:20→20:03)
[2019-01-11] MEDS: enoxaparin 40mg/0.4ml syringe SQ SCH (07:20)
[2019-01-11] MEDS: duloxetine 30mg CAPSULE.DR PO SCH (07:20)
[2019-01-11] MEDS: docusate sod 100mg capsule PO SCH ×2 (07:29→20:00)
[2019-01-11] MEDS: topiramate 100mg tablet PO SCH (07:31)
[2019-01-11] MEDS: pantoprazole 40mg Tablet.DR PO SCH (07:31)
[2019-01-11] MEDS: nystatin 15 GM powder TP SCH ×3 (07:32→20:05)
[2019-01-11] MEDS: cefepime inj 2 GM in dextrose 5%-water 50ml 50 ML IV SCH ×2 (09:22→20:03)
[2019-01-11 11:00] VITALS: BP 109/58
[2019-01-11 16:13] LABS: TOTAL CELLS COUNTED 100
[2019-01-11 16:16] LABS: PLATELET ESTIMATE NORMAL
[2019-01-11 16:17] LABS: ANISOCYTOSIS 1+; HYPOCHROMASIA 2+
[2019-01-11 16:18] LABS: MICROCYTOSIS 1+
[2019-01-11 18:00] VITALS: BP 132/64
--- NOTE | 2019-01-11 18:19 | NUR ---
Problems reprioritized. Patient report given, questions answered & plan of care reviewed with MARIA ESTHER KYLE.
[2019-01-11] MEDS: Melatonin 3mg tablet PO SCH (20:03)
[2019-01-11] MEDS: traZODone 50mg tablet PO SCH (20:04)
[2019-01-11] MEDS: aripiprazole 5mg tablet PO SCH (20:04)
[2019-01-11] MEDS: metroNIDAZOLE 500mg tablet PO SCH (20:04)
--- NOTE | 2019-01-11 22:16 | NUR ---
Patient in room [facility]. I have received report from SAROJ Grover and had the opportunity to ask questions and assume patient care. Addendum: 01/11/19 at 2217 by Anne Silva RN Amended: Links added.
[2019-01-12] MEDS: HYDROcodone/acetaminophen 10/325mg tab PO PRN ×2 (00:11→12:21)
[2019-01-12 00:17] VITALS: BP 120/68
--- NOTE | 2019-01-12 02:58 | NUR ---
pt states she had a bm on 01/11 Addendum: 01/12/19 at 0259 by Anne Silva RN Amended: Links added.
[2019-01-12 05:23] LABS: BASOPHILS # (AUTO) 0.1 X10'3 (0-0.2); BASOPHILS % (AUTO) 1.2 % (0-1); EOSINOPHILS # (AUTO) 0.2 X10'3 (0-0.9); EOSINOPHILS % (AUTO) 2.7 % (0-6); HEMATOCRIT 31.2 % (35.0-45.0); LYMPHOCYTES # (AUTO) 2.1 X10'3 (1.1-4.8); LYMPHOCYTES % (AUTO) 26.9 % (21-51); MEAN CORPUSCULAR HEMOGLOBIN 24.4 PG (27.0-31.0); MEAN CORPUSCULAR VOLUME 76.4 FL (78-98); MEAN PLATELET VOLUME 7.8 FL (7.4-10.4); NEUTROPHILS # (AUTO) 4.3 X10'3 (1.8-7.7); NEUTROPHILS % (AUTO) 56.2 % (42-75); PLATELET COUNT 335 X10'3 (140-440); RED BLOOD COUNT 4.09 X10'6 (4.20-5.60); RED CELL DISTRIBUTION WIDTH 16.9 % (11.5-14.5); WHITE BLOOD COUNT 7.7 X10'3 (4.5-11.0)
[2019-01-12 05:41] LABS: ALANINE AMINOTRANSFERASE 11 U/L (12-78); ALBUMIN 2.6 G/DL (3.4-5.0); ALBUMIN/GLOBULIN RATIO 0.5 (1.1-1.5); ALKALINE PHOSPHATASE 77 IU/L (46-116); ANION GAP 7 (8-16); ASPARTATE AMINO TRANSFERASE 7 U/L (10-37); BILIRUBIN,TOTAL 0.3 MG/DL (0.1-1.0); BLOOD UREA NITROGEN 11 MG/DL (7-18); BUN/CREATININE RATIO 14.7 (6.6-38.0); CHLORIDE 106 MMOL/L (99-107); CREATININE 0.75 MG/DL (0.40-0.90); GLUCOSE 111 MG/DL (70-104); POTASSIUM 4.1 MMOL/L (3.5-5.1); SODIUM 140 MMOL/L (135-145); TOTAL CARBON DIOXIDE 26.9 MMOL/L (24-32); TOTAL PROTEIN 7.6 G/DL (6.4-8.2); eGFR 76 ML/MIN
--- NOTE | 2019-01-12 06:38 | NUR ---
Problems reprioritized. Patient report given, questions answered & plan of care reviewed with SAROJ Villalta. Addendum: 01/12/19 at 0638 by Anne Silva RN Amended: Links added.
--- NOTE | 2019-01-12 07:17 | NUR ---
Patient in room [facility]. I have received report from Anne KYLE and had the opportunity to ask questions and assume patient care.
[2019-01-12] MEDS: K and/or MAG REPLACEMENT MC SCH (08:00)
[2019-01-12] MEDS: docusate sod 100mg capsule PO SCH (08:00)
[2019-01-12] MEDS: lactobacillus rhamnosus 10,000 MMU CELLS/CAPSULE PO SCH (08:03)
[2019-01-12] MEDS: levoTHYROXINE 75mcg tablet PO SCH (08:03)
[2019-01-12] MEDS: benztropine 1mg tablet PO SCH (08:03)
[2019-01-12] MEDS: cefepime inj 2 GM in dextrose 5%-water 50ml 50 ML IV SCH (08:03)
[2019-01-12] MEDS: pantoprazole 40mg Tablet.DR PO SCH (08:03)
[2019-01-12] MEDS: metroNIDAZOLE 500mg tablet PO SCH (08:04)
[2019-01-12] MEDS: topiramate 100mg tablet PO SCH (08:04)
[2019-01-12] MEDS: duloxetine 30mg CAPSULE.DR PO SCH (08:05)
[2019-01-12] MEDS: nystatin 15 GM powder TP SCH ×2 (08:06→13:18)
[2019-01-12] MEDS: enoxaparin 40mg/0.4ml syringe SQ SCH (08:28)
[2019-01-12 11:00] VITALS: BP 127/70
--- NOTE | 2019-01-12 18:30 | NUR ---
Report called to accepting facility and transition of care was done with Mike from the [place] [facility] the facility. All questions answered at this time. Patient was prepared for discharge and IV was taken out at this time. Patient has a PICC she is leaving with in the upper right arm for Abx therapy. Patient stated she was missing her teeth and glasses upon discharge. [facility] van waited for about 5 minutes longer while we tried to locate patient teeth and glasses. [facility] did not have the patient belonging, and a call to ICU was out and no answer as of this time. Patient will be notified upon location and accepting facility was also notified of missing items.
== END 2019-01-12 18:08 | DRG 853 ==
LOC: ER 17:31 → SUR 3N 23:51 → CMPBEDREQ 12-23 00:03 → ICU 2S 12-24 17:44 → PCU 3S 12-25 12:39 → SUR 3N 12-25 14:57
PROVIDERS: ADMIT Family Medicine; ATTEND Family Medicine
PROC: 0F798ZZ Dilation of Common Bile Duct, Via Natural or Artificial Opening Endoscopic (ICD-10-PCS; 2018-12-23)
PROC: BF131ZZ Fluoroscopy of Gallbladder and Bile Ducts using Low Osmolar Contrast (ICD-10-PCS; 2018-12-23)
PROC: 0FT44ZZ Resection of Gallbladder, Percutaneous Endoscopic Approach (ICD-10-PCS; principal; 2018-12-24 16:21)
PROC: BW211ZZ Computerized Tomography (CT Scan) of Abdomen and Pelvis using Low Osmolar Contrast (ICD-10-PCS; 2018-12-29)
PROC: 0W9G30Z Drainage of Peritoneal Cavity with Drainage Device, Percutaneous Approach (ICD-10-PCS; 2018-12-31)
PROC: BW211ZZ Computerized Tomography (CT Scan) of Abdomen and Pelvis using Low Osmolar Contrast (ICD-10-PCS; 2019-01-10)
PROC: 02HV33Z Insertion of Infusion Device into Superior Vena Cava, Percutaneous Approach (ICD-10-PCS; 2019-01-12)
PROC: 4A02X4A Measurement of Cardiac Electrical Activity, Guidance, External Approach (ICD-10-PCS; 2019-01-12)
PROC: B548ZZA Ultrasonography of Superior Vena Cava, Guidance (ICD-10-PCS; 2019-01-12)
DX: A41.9 Sepsis, unspecified organism (principal); G93.41 Metabolic encephalopathy; K75.0 Abscess of liver; K85.10 Biliary acute pancreatitis without necrosis or infection; K65.1 Peritoneal abscess; J96.90 Respiratory failure, unspecified, unspecified whether with hypoxia or hypercapnia; N39.0 Urinary tract infection, site not specified; B17.9 Acute viral hepatitis, unspecified; K80.13 Calculus of gallbladder with acute and chronic cholecystitis with obstruction; E03.9 Hypothyroidism, unspecified; E78.00 Pure hypercholesterolemia, unspecified; E78.5 Hyperlipidemia, unspecified; F03.90 Unspecified dementia, unspecified severity, without behavioral disturbance, psychotic disturbance, mood disturbance, and anxiety; I10 Essential (primary) hypertension; I73.9 Peripheral vascular disease, unspecified; J44.9 Chronic obstructive pulmonary disease, unspecified; K21.9 Gastro-esophageal reflux disease without esophagitis; F41.8 Other specified anxiety disorders; M19.90 Unspecified osteoarthritis, unspecified site; D18.01 Hemangioma of skin and subcutaneous tissue; K82.A1 Gangrene of gallbladder in cholecystitis; N32.81 Overactive bladder; D64.9 Anemia, unspecified; E87.6 Hypokalemia; E66.01 Morbid (severe) obesity due to excess calories; G89.29 Other chronic pain; B96.20 Unspecified Escherichia coli [E. coli] as the cause of diseases classified elsewhere; B96.5 Pseudomonas (aeruginosa) (mallei) (pseudomallei) as the cause of diseases classified elsewhere; Z66 Do not resuscitate; Z87.442 Personal history of urinary calculi; Z88.0 Allergy status to penicillin; Z88.2 Allergy status to sulfonamides; Z88.6 Allergy status to analgesic agent; Z88.8 Allergy status to other drugs, medicaments and biological substances; Z91.030 Bee allergy status; Z79.890 Hormone replacement therapy; Z79.899 Other long term (current) drug therapy; Z87.891 Personal history of nicotine dependence; Z90.49 Acquired absence of other specified parts of digestive tract; Z68.31 Body mass index [BMI] 31.0-31.9, adult; Z22.322 Carrier or suspected carrier of Methicillin resistant Staphylococcus aureus; Z74.01 Bed confinement status
CPT/HCPCS: 36415; 36569; 43262; 43264; 49405; 71045; 74176; 74177; 74181; 76700; 76937; 80048; 80053; 80061; 80202; 81001; 82948; 83036; 83605; 83690; 83735; 83880; 84100; 84132; 84145; 84443; 85025; 85027; 85384; 85610; 85730; 86885; 86900; 86901; 86920; 87040; 87070; 87077; 87081; 87088; 87186; 88304; 92508; 92616; 93005; 94760; 96365; 96375; 97110; 97116; 97161; 97530; 99152; 99153; 99285; A4215; A4618; A4620; A7000; C1769; G0378; J0692; J0696; J1100; J1170; J1200; J1610; J1650; J1956; J2250; J2270; J2405; J2543; J2704; J2710; J3010; J3370; J3475; J3480; J3490; J7030; J7040; J7060; J7120; Q9963; Q9967

== ENCOUNTER 2019-02-03 09:31 | Outpatient (CLI) | payer MEDICARE, MEDICAID ==
[~2019-02-03 09:31] MED LIST changes: -ALBU8.5H8 IH; -BENZ1LOZ61 PO; +GUAI-652 PO; -HYDR-4353 PO; -LORA0.5T PO; +MELA3TAB64 PO; +MIRA50TA PO; +MORP15TA PO; -OXYC10TA57 PO; +PANT-47 PO; +TRAZ-251 PO
[2019-02-03] MEDS ORDERED: iohexol 300mg/ml 100ml inj. ONE (09:44)
== END 2019-02-03 23:59 | disposition home or self-care (01) ==
LOC: 64 CT 09:31
PROVIDERS: ATTEND Internal Medicine Infectious Disease
DX: N20.0 Calculus of kidney (principal); N28.89 Other specified disorders of kidney and ureter; K76.89 Other specified diseases of liver; I70.0 Atherosclerosis of aorta; L72.3 Sebaceous cyst; I87.8 Other specified disorders of veins; I10 Essential (primary) hypertension; J44.9 Chronic obstructive pulmonary disease, unspecified; Z90.49 Acquired absence of other specified parts of digestive tract; Z87.891 Personal history of nicotine dependence
CPT/HCPCS: 74177; Q9967